=== PATIENT | female | born 1990 | race Caucasian/White ===

== ENCOUNTER 2017-01-29 05:41 | Day surgery (SDC) | payer BC ==
--- NOTE | 2017-01-26 17:02 | PDGENHP ---
History and Physical - Chief Complaint Right Hip Pain - History of Present Illness 1. Bilateral~Hip Dyplasia; RIGHT side symptomatic, labral tear HISTORY OF PRESENT ILLNESS: Kimiis a 26 y.o.~very ~active female~who I have had the pleasure to consult on today.~I have enjoyed meeting her. She~lives in [place]. 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 ~She~is ; she~has no~children. ~Jordana Reevesenjoys training for an olympic triathlon, sprint triathlon, high intensity interval traning,hiking, skiing, rock climbing. Jordana's~right~hip pain~started several months ago, approximately 6 months ago. She reports a sprained ankle in March 2016 but~little~recalled trauma or injury~to the right hip in May 2016, and with no~previous complaints.~ Kimihas~a known history of hip dysplasia when she was given results after an MRI ordered by Dr. Doss in [place]. Presentation today is of~posterior right~hip pain~with lateral hip pain as well. ~The hip does not~wake her~at night and does~click and catch on her. Sitting can be a real struggle~for her. Kimidoes~report suffering from lower back pain episodes. Kimihas~participated in physical therapy twice over two different sessions for 2-3 months each. ~has~tried other conservative measures including chiropractic treatments and accupuncture, dry needling, massage and graston. She ~has not~received sufficient symptomatic improvement. Kimihas~utilized medication for pain management, including CBD oils. She has an intolerance to NSAIDs causing severe nausea Kimihas stiffness but is without pain on the left hip. Kimiunderstands that she~has a hip and pelvis problem which should be researched and wishes to get a better understanding of her~hip status, followed by an establishment of a treatment strategy, hoping she~would be able to get back to her~well being active life. History: Past medical history: ~ ciliac, hypothyroid Relevant familial history: None which is relevant Past surgical history: None Kimihas never received general anesthesia. I have reviewed, verified and agree with the past medical, surgical, family and social history. Current Medications:~has a current medication list which includes the following prescription(s): levothyroxine and multivitamin. ALLERGIES:~is allergic to penicillins. Objective: Physical Examination: Kimiis 5~feet 8~inches tall and weighs~160~Lbs. Kimiis AAO x3; she~is well-nourished, in NAD. Skin is warm and dry. ~Breathing is non-labored. ~CV with RRR by pulse. Abdomen is soft, NTND. Currently, she~walks with a normal~gait. Trendelenburg sign is negative~and proprioception~is reduced, both~sides. She~presents~with no~signs of joint laxity.~Beightons Score: 0 She~is fit looking. ~~ Lower spine examination is negative~for sciatic or femoral nerve irritation with negative~SLR &~femoral stretch tests. Range of motion of the spine is normal~for flexion, extension, and rotations, with no~associated pain. TTP to the~Lumbar paraspinal muscles bilateral. Strength, Sensation and pulses are normal - bilaterally Ankles and knees exams are normal~and no~mal-alignment is evident. She~has~no leg length discrepancy. Thigh circumference is symmetric~with no evidence for muscle atrophy~on both~ sides. Hip ROM (degrees): FL ER At 90~hip FL IR At 90~hip FL AB AD EX IR Neutral hip ER Neutral hip R 105 40 45 40 5 10 50 25 L 110 40 40 35-40 5 10 50 25 Specific hip and pelvis tests: Quadrant ALEX Roll Add. Longus R +++ +++ Negative Negative L + + Negative Negative Glut. Med ITB Pos. Imp R +++ 5/5 strength Negative 5/5 strength Negative L Negative 5/5 strength Negative 5/5 strength Negative Squeeze test measured weak Bony Symphysis pubis is painful~to touch while concentric activity of the rectus abdominis, does~produce pain at its insertion on the right side. Ilio Psos specific tests are positive for pain during cycling for the right hip~ and remarkable for painful snap~on the right HF has negative both hips. Anterior/posterior~capsule tenderness right >> left Greater trochanteric burse is painful~on the right hip~>> left Piriformis tests: FAIR is negative, with no~local signs of neuritis related to sciatic nerve. SIJs examination is produces pain on right side~with~abnormal ALEX~in relation and local tenderness. Hamstrings tests are positive for~tendinopathy the right hip~(muscle belly) On a daily basis, the following percentages reflect Jordana's overall total pain : Deep hip: 75% (posterior capsule) GT: 25% Imaging: Radiology studies which I~have personally reviewed, analyzed and measured are below: XR: AP of the hip and pelvis: Performed in a good~technique Coccyx is at the level of the pubic symphysis 0 degrees [place]~Lines are interrupted R>L Minimal~Pathological signs are seen in the Symphysis Pubis. Minimal~Pathological signs are seen at the Ischial~tuberosity. ~ Specific measurements show: NSA~ LCE Sourcil~Angle Sharp's angle Lat. Cam Lat. Pincer C.Over~sign Head~Coverage % ATDmm R N 13 18 44 - - 12-2 60 N L N 9 25 47 - - 12-12:30 60 N Pos. wall sign ISS NAD ~~Dysplasia Comments R ++ Negative 10.3~mm +++ L ++ Negative 11.6~mm +++ Sclerosis Sup. Lat. OA Cysts Joint Space-WBZ Joint Space-Medial R Negative Negative Negative 7.4~mm 5.9~mm L Negative Negative Negative 7.4~mm 7.2~mm X Table lateral: Anterior cam lesion is seen~on both hips. Alpha Angle: ~ Right 59~dergrees Left 58~degrees MRI shows: decreased cartilage coverage of Right hip, no bone edema, labral tear ~~~~~~~~~~~~~~~~~~~~ Impression and plan:Leandro Boldenis a 26 y.o.~active female~suffering from symptomatic right~hip pain due to Hip Dyplasia~causing significant disability to her~and altering~her~ sport and life activities. Physical examination, imaging, and her~story correspond with the diagnosis mentioned above. I explained that hip dysplasia is a condition wherein the hip joint has excessive play~and instability due to a variety of factors, including the depth and adequacy of the socket, the orientation of the femur bone, and ligament laxity around the hip joint. Dysplasia ranges in severity from borderline to seth, with treatment options being specific to the specific nature of the problem. Left untreated, the instability in the hip joint can cause progressive tearing of the labrum and deterioration of the surface cartilage, ultimately resulting in progressive osteoarthritis of the hip. I explained that femoroacetabular impingement (QUINTIN - Cam type) arises due to a bony or soft tissue conflict between the femur (ball) and acetabulum (socket) caused by an abnormality in the shape of the femoral head and neck. Over time, repetitive impingement can result in damage to the labrum and adjacent surface cartilage within the socket, ultimately giving rise to progressive osteoarthritis of the hip. I explained that although a labral tear can be a source of pain, it is rarely the root of the problem and typically occurs secondary to an underlying abnormality in the shape and mechanics of the hip joint. I reviewed conservative treatment options for Dysplasia and QUINTIN including activity modification to avoid positions of impingement or instability, physical therapy, non-steroidal anti-inflammatory medications, and various injections (corticosteroid and PRP) aimed at reducing inflammation in the hip joint or/and preventing dynamic instability and impingement. PRP injections may promote healing and reduce symptoms in certain cases but it will not repair chronically damaged tissue. Although these measures may help to buy time~and reduce current level of symptoms, they are not a definitive solution to the problem given the underlying abnormality in the shape of the hip joint. Patients who have failed conservative management and continue to experience symptoms are candidates for definitive surgical treatment, which may consist of hip arthroscopy alone or in combination with more invasive bony realignment procedures of the hip socket and/or femur called periacetabular osteotomy (CONCEPCIÓN). Hip arthroscopy typically includes treating the labrum with either repair or reconstruction of the torn labrum; as well as addressing the underlying abnormalities by restoring the normal shape to the hip joint. If the cartilage is damaged a Microfracture surgical procedure may also be necessary to help stimulate the growth of fibrocartilage. If a patient requires a labral reconstruction or a Microfracture, the initial rehabilitation from the surgery may take longer, but the termination clerk results are typically favorable. I reviewed the technical aspects of periacetabular osteotomy (CONCEPCIÓN) including risks, benefits, and expected course of recovery. Jordana~understands that CONCEPCIÓN is an inpatient procedure carried out through two medium sized incisions on the front and back of the hip joint. The hip socket is cut, realigned, and stabilized with 2 ~3 internal screws. Risks include infection, bleeding, injury to nearby nerves or vessels, stiffness, persistent pain, instability, failure of bony healing, implant related complications, and venous thromboembolic disease. Rarely, revision surgery may be required to address these problems. Risks, potential complications, side effects and recovery from surgical procedure were discussed in length. We explained how this surgery is an open procedure, and though patients tend to do well in the long-term, it involves significant pain in the first 2-4 weeks post-op and a rather lengthy rehab.~Overall recovery takes approximately 6 ~12~months depending on the extent of damage and degree of repair. Kimiunderstands that she~will undergo hip arthroscopy 1 week prior to the CONCEPCIÓN to address damage inside the hip joint. Kimiunderstands that hip arthroscopy and CONCEPCIÓN are two separate procedures that are best performed one week apart, with the arthroscopy commencing first to "tighten up" any pathology evident in the hip joint (labral repair, etc.) and the CONCEPCIÓN open procedure occurring 7-10 days later to realign the acetabulum. Kimiwill review the info presented. In order to obtain more detailed information regarding the alignment, orientation, and shape of the bony hip and pelvis I will order a CT scan to be performed. The results of the CT scan, including femoral torsion and acetabular version measured values and 3D images, will aid me in deciding on the best treatment strategy and surgical pre-planning. Kimiwill contact us if she~wishes to pursue further treatment in the future. Kimiis happy with this plan. I have also supplied her~with handouts, outlining the expected surgical treatment and rehab involved. I wish~JordanaLeandroall the best, ~~ Celine Campbell, ATC History Information - Allergies/Home Medication List Allergies/Adverse Reactions: amoxicillin Allergy (Severe, Verified 01/08/17 17:09) Swelling/neck,face,throat Penicillins Allergy (Severe, Verified 01/08/17 17:09) Swelling/neck,face,throat latex Allergy (Mild, Verified 01/08/17 17:09) Redness Milk Containing Products [dairy] Allergy (Verified 01/08/17 11:13) oxycodone Allergy (Verified 01/08/17 11:13) VERTIGO soy Allergy (Verified 01/08/17 11:13) CELIAC Allergy (Uncoded 01/08/17 11:13) Home Medications: Cholecalciferol Vit D3 [Vitamin D3 2000 units tab (OTC)] 2,000 units PO DAILY [Last Taken Unknown] Herbals/Supplements -Info Only 1 ea PO DAILY 01/08/17 [Last Taken Unknown] Levothyroxine [Synthroid 100 mcg (*)] 100 mcg PO DAILY06 01/08/17 [Last Taken Unknown] Multivitamins [Multivitamin (*)] 1 each PO DAILY 01/08/17 [Last Taken Unknown] Thiamine HCl [B-1] 100 mg PO DAILY 01/08/17 [Last Taken Unknown] I have personally reviewed and updated: medical history (Pre-OP) - Social History Smoking Status: Never smoked
[2017-01-29] MEDS ORDERED: ACETAMINOPHEN 500 MG TAB PO ONE (05:58)
[2017-01-29] MEDS ORDERED: PREGABALIN 150 MG CAP PO ONE (05:58)
[2017-01-29] MEDS ORDERED: CLINDAMYCIN 900 MG/DEXTROSE 50 ML IV ONE (05:58)
[2017-01-29] MEDS ORDERED: LIDOCAINE 1% 2 ML INJ ID PRN (05:58)
[2017-01-29] MEDS ORDERED: LR 1,000 ML IV ONE (05:58)
[2017-01-29 06:13] VITALS: PULSE 80
[2017-01-29] MEDS ORDERED: BUPIVACAINE 0.25% 30 ML SDV ONE (06:57)
[2017-01-29] MEDS ORDERED: MIDAZOLAM 2 MG/2 ML VIAL ONE ×2 (07:09→07:16)
[2017-01-29] MEDS ORDERED: fentaNYL 100 MCG/2 ML INJ ONE ×3 (07:15→09:46)
[2017-01-29] MEDS ORDERED: PROPOFOL/EMULSION 500 MG/50 ML BOTTLE IV ONE ×2 (07:16→07:34)
[2017-01-29] MEDS ORDERED: RANITIDINE 50 MG/2 ML VIAL ONE (07:49)
[2017-01-29] MEDS ORDERED: ONDANSETRON 4 MG/2 ML VIAL ONE ×2 (07:49→12:08)
[2017-01-29] MEDS ORDERED: KETOROLAC 30 MG/1 ML SDV ONE (07:49)
[2017-01-29] MEDS ORDERED: ROCURONIUM 50 MG/5 ML VIAL ONE ×2 (07:49→07:55)
[2017-01-29] MEDS ORDERED: METOCLOPRAMIDE 10 MG/2 ML VIAL ONE (07:49)
[2017-01-29] MEDS ORDERED: SUGAMMADEX SODIUM 200 MG/2 ML VIAL IVP ONE (07:49)
[2017-01-29] MEDS ORDERED: LIDOCAINE 2% 5 ML SDV ONE (07:49)
[2017-01-29] MEDS ORDERED: OXYCODONE/APAP 5/325 TAB PO PRN (09:02)
[2017-01-29] MEDS ORDERED: METOCLOPRAMIDE 10 MG/2 ML VIAL IVP PRN (09:02)
[2017-01-29] MEDS ORDERED: ACETAMINOPHEN 500 MG TAB PO PRN (09:02)
[2017-01-29] MEDS ORDERED: DEXAMETHASONE 4 MG/ML VIAL IVP PRN (09:02)
[2017-01-29] MEDS ORDERED: PROMETHAZINE HCL 25 MG/ML INJ IVP PRN (09:02)
[2017-01-29] MEDS ORDERED: LR 500 ML IV PRN (09:02)
[2017-01-29] MEDS ORDERED: HYDROCODONE/APAP 5/325 TAB PO PRN (09:02)
[2017-01-29] MEDS ORDERED: D5W LR 500 ML IV PRN (09:02)
[2017-01-29] MEDS ORDERED: ONDANSETRON 4 MG/2 ML VIAL IVP PRN (09:02)
[2017-01-29] MEDS ORDERED: NALOXONE HCL 0.4 MG/ML INJ IVP PRN ×2 (09:02→10:29)
[2017-01-29] MEDS ORDERED: HYDROCODONE/APAP 5/325 TAB ONE (09:46)
[2017-01-29] MEDS ORDERED: PROMETHAZINE HCL 25 MG/ML INJ ONE ×2 (09:47→12:45)
[2017-01-29] MEDS: fentaNYL 100 MCG/2 ML INJ IVP PRN ×2 (09:49→10:17)
--- NOTE | 2017-01-29 10:02 | POSTANESTH ---
Post Anesthetic Evaluation Cardiovascular Status: Normal, Stable Respiratory Status: Normal, Stable Level of Consciousness/Mental Status: Can Participate in Eval Pain Control: Adequate, Prn Tx Ordered Nausea/Vomiting Control: Adequate, Prn Tx Ordered Complications Possibly Related to Anesthesia: None Noted
[2017-01-29 10:22] VITALS: BP 113/65; O2SAT 100
[2017-01-29] MEDS ORDERED: MEPERIDINE 25 MG/ML SYR IVP PRN (10:29)
[2017-01-29] MEDS ORDERED: MEPERIDINE 25 MG/ML SYR ONE (10:32)
[2017-01-29 11:35] VITALS: RESP 14; TEMP 97.7
== END 2017-01-29 14:48 | disposition home or self-care (01) ==
LOC: FSGY 05:41
PROVIDERS: ATTEND Orthopaedic Surgery Sports Medicine
PROC: 0SQ94ZZ Repair Right Hip Joint, Percutaneous Endoscopic Approach (ICD-10-PCS; principal; 2017-01-29 07:15)
DX: M25.851 Other specified joint disorders, right hip (principal); M25.852 Other specified joint disorders, left hip
CPT/HCPCS: 29914; 76001; C1769; C1713; J0171; J1885; J2250; J2405; J2550; J2704; J2765; J2780; J3010

== ENCOUNTER 2017-02-09 05:46 | Inpatient (IN) | payer BC ==
--- NOTE | 2017-01-29 08:03 | PDANEPAE ---
ANE Past Medical History - Cardiovascular History Hx Hypertension: No Hx Arrhythmias: No Hx Chest Pain: No Hx Coronary Artery / Peripheral Vascular Disease: No Hx CHF / Valvular Disease: No Hx Palpitations: No - Pulmonary History Hx COPD: No Hx Asthma/Reactive Airway Disease: No Hx Recent Upper Respiratory Infection: No Hx Oxygen in Use at Home: No Hx Sleep Apnea: No Sleep Apnea Screening Result - Last Documented: Negative - Neurologic History Hx Cerebrovascular Accident: No Hx Seizures: No Hx Dementia: No - Endocrine History Hx Diabetes: No Hypothyroid: Yes Obesity: yes, no (high anxiety, ETOH use 15-20 beers a week) Endocrine History Comment: hypothyroidism - Renal History Hx Renal Disorders: No - Liver History Hx Hepatic Disorders: No - Neurological & Psychiatric Hx Hx Neurological and Psychiatric Disorders: No - Cancer History Hx Cancer: No - Congenital Disorder History Hx Congenital Disorders: Yes Congenital History Comment: bilateral hip dysplasia - GI History Hx Gastrointestinal Disorders: Yes Gastrointestinal History Comment: celiac disease. hx of colonoscopies - Other Health History Other Health History: tmj uses mouthguard at [facility] - Chronic Pain History Chronic Pain: Yes (bilateral hips) - Surgical History Prior Surgeries: 01/29/17 right hip femoroplasty, labral repair with Romana Gianluca ANE Review of Systems - Exercise capacity METS (RN): 6 METS ANE Patient History - Allergies Allergies/Adverse Reactions: amoxicillin Allergy (Severe, Verified 01/08/17 17:09) Swelling/neck,face,throat Penicillins Allergy (Severe, Verified 01/08/17 17:09) Swelling/neck,face,throat latex Allergy (Mild, Verified 01/08/17 17:09) Redness Milk Containing Products [dairy] Allergy (Verified 01/08/17 11:13) oxycodone Allergy (Verified 01/08/17 11:13) VERTIGO soy Allergy (Verified 01/08/17 11:13) CELIAC Allergy (Uncoded 01/08/17 11:13) - Home Medications Home Medications: Cholecalciferol Vit D3 [Vitamin D3 2000 units tab (OTC)] 2,000 units PO DAILY [Last Taken 01/22/17] Herbals/Supplements -Info Only 1 ea PO DAILY 01/08/17 [Last Taken 01/22/17] Levothyroxine [Synthroid 100 mcg (*)] 100 mcg PO DAILY06 01/08/17 [Last Taken 04:15] Multivitamins [Multivitamin (*)] 1 each PO DAILY 01/08/17 [Last Taken 01/22/17] Thiamine HCl [B-1] 100 mg PO DAILY 01/08/17 [Last Taken 01/22/17] - Smoking Hx Smoking Status: Never smoked - Family Anes Hx Family Hx Anesthesia Complications: none ANE Labs/Vital Signs - Vital Signs Height: 172.72 cm Weight: 74.843 kg ANE Physical Exam - Airway Mallampati Score: Class 1 Mouth exam: normal dental/mouth exam - Pulmonary Pulmonary: no respiratory distress, no rales or rhonchi, clear to auscultation - Cardiovascular Cardiovascular: regular rate and rhythym, no murmur, rub, or gallop, pulses symmetric bilaterally - ASA Status ASA Status: II
--- NOTE | 2017-02-08 08:46 | PDGENHP ---
History and Physical - Chief Complaint RIGHT HIP PAIN - History of Present Illness 1. Bilateral~Hip Dyplasia; RIGHT side symptomatic, labral tear HISTORY OF PRESENT ILLNESS: Kimiis a 26 y.o.~very ~active female~who I have had the pleasure to consult on today.~I have enjoyed meeting her. She~lives in [place]. 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 ~She~is ; she~has no~children. ~Jordana Reevesenjoys training for an olympic triathlon, sprint triathlon, high intensity interval traning,hiking, skiing, rock climbing. Jordana's~right~hip pain~started several months ago, approximately 6 months ago. She reports a sprained ankle in March 2016 but~little~recalled trauma or injury~to the right hip in May 2016, and with no~previous complaints.~ Kimihas~a known history of hip dysplasia when she was given results after an MRI ordered by Dr. Doss in [place]. Presentation today is of~posterior right~hip pain~with lateral hip pain as well. ~The hip does not~wake her~at night and does~click and catch on her. Sitting can be a real struggle~for her. Kimidoes~report suffering from lower back pain episodes. Kimihas~participated in physical therapy twice over two different sessions for 2-3 months each. ~has~tried other conservative measures including chiropractic treatments and accupuncture, dry needling, massage and graston. She ~has not~received sufficient symptomatic improvement. Kimihas~utilized medication for pain management, including CBD oils. She has an intolerance to NSAIDs causing severe nausea Kimihas stiffness but is without pain on the left hip. Kimiunderstands that she~has a hip and pelvis problem which should be researched and wishes to get a better understanding of her~hip status, followed by an establishment of a treatment strategy, hoping she~would be able to get back to her~well being active life. History: Past medical history: ~ ciliac, hypothyroid Relevant familial history: None which is relevant Past surgical history: None Kimihas never received general anesthesia. I have reviewed, verified and agree with the past medical, surgical, family and social history. Current Medications:~has a current medication list which includes the following prescription(s): levothyroxine and multivitamin. ALLERGIES:~is allergic to penicillins. Objective: Physical Examination: Kimiis 5~feet 8~inches tall and weighs~160~Lbs. Kimiis AAO x3; she~is well-nourished, in NAD. Skin is warm and dry. ~Breathing is non-labored. ~CV with RRR by pulse. Abdomen is soft, NTND. Currently, she~walks with a normal~gait. Trendelenburg sign is negative~and proprioception~is reduced, both~sides. She~presents~with no~signs of joint laxity.~Beightons Score: 0 She~is fit looking. ~~ Lower spine examination is negative~for sciatic or femoral nerve irritation with negative~SLR &~femoral stretch tests. Range of motion of the spine is normal~for flexion, extension, and rotations, with no~associated pain. TTP to the~Lumbar paraspinal muscles bilateral. Strength, Sensation and pulses are normal - bilaterally Ankles and knees exams are normal~and no~mal-alignment is evident. She~has~no leg length discrepancy. Thigh circumference is symmetric~with no evidence for muscle atrophy~on both~ sides. Hip ROM (degrees): FL ER At 90~hip FL IR At 90~hip FL AB AD EX IR Neutral hip ER Neutral hip R 105 40 45 40 5 10 50 25 L 110 40 40 35-40 5 10 50 25 Specific hip and pelvis tests: Quadrant ALEX Roll Add. Longus R +++ +++ Negative Negative L + + Negative Negative Glut. Med ITB Pos. Imp R +++ 5/5 strength Negative 5/5 strength Negative L Negative 5/5 strength Negative 5/5 strength Negative Squeeze test measured weak Bony Symphysis pubis is painful~to touch while concentric activity of the rectus abdominis, does~produce pain at its insertion on the right side. Ilio Psos specific tests are positive for pain during cycling for the right hip~ and remarkable for painful snap~on the right HF has negative both hips. Anterior/posterior~capsule tenderness right >> left Greater trochanteric burse is painful~on the right hip~>> left Piriformis tests: FAIR is negative, with no~local signs of neuritis related to sciatic nerve. SIJs examination is produces pain on right side~with~abnormal ALEX~in relation and local tenderness. Hamstrings tests are positive for~tendinopathy the right hip~(muscle belly) On a daily basis, the following percentages reflect Jordana's overall total pain : Deep hip: 75% (posterior capsule) GT: 25% Imaging: Radiology studies which I~have personally reviewed, analyzed and measured are below: XR: AP of the hip and pelvis: Performed in a good~technique Coccyx is at the level of the pubic symphysis 0 degrees [place]~Lines are interrupted R>L Minimal~Pathological signs are seen in the Symphysis Pubis. Minimal~Pathological signs are seen at the Ischial~tuberosity. ~ Specific measurements show: NSA~ LCE Sourcil~Angle Sharp's angle Lat. Cam Lat. Pincer C.Over~sign Head~Coverage % ATDmm R N 13 18 44 - - 12-2 60 N L N 9 25 47 - - 12-12:30 60 N Pos. wall sign ISS NAD ~~Dysplasia Comments R ++ Negative 10.3~mm +++ L ++ Negative 11.6~mm +++ Sclerosis Sup. Lat. OA Cysts Joint Space-WBZ Joint Space-Medial R Negative Negative Negative 7.4~mm 5.9~mm L Negative Negative Negative 7.4~mm 7.2~mm X Table lateral: Anterior cam lesion is seen~on both hips. Alpha Angle: ~ Right 59~dergrees Left 58~degrees MRI shows: decreased cartilage coverage of Right hip, no bone edema, labral tear ~~~~~~~~~~~~~~~~~~~~ Impression and plan:Leandro Boldenis a 26 y.o.~active female~suffering from symptomatic right~hip pain due to Hip Dyplasia~causing significant disability to her~and altering~her~ sport and life activities. Physical examination, imaging, and her~story correspond with the diagnosis mentioned above. I explained that hip dysplasia is a condition wherein the hip joint has excessive play~and instability due to a variety of factors, including the depth and adequacy of the socket, the orientation of the femur bone, and ligament laxity around the hip joint. Dysplasia ranges in severity from borderline to seth, with treatment options being specific to the specific nature of the problem. Left untreated, the instability in the hip joint can cause progressive tearing of the labrum and deterioration of the surface cartilage, ultimately resulting in progressive osteoarthritis of the hip. I explained that femoroacetabular impingement (QUINTIN - Cam type) arises due to a bony or soft tissue conflict between the femur (ball) and acetabulum (socket) caused by an abnormality in the shape of the femoral head and neck. Over time, repetitive impingement can result in damage to the labrum and adjacent surface cartilage within the socket, ultimately giving rise to progressive osteoarthritis of the hip. I explained that although a labral tear can be a source of pain, it is rarely the root of the problem and typically occurs secondary to an underlying abnormality in the shape and mechanics of the hip joint. I reviewed conservative treatment options for Dysplasia and QUINTIN including activity modification to avoid positions of impingement or instability, physical therapy, non-steroidal anti-inflammatory medications, and various injections (corticosteroid and PRP) aimed at reducing inflammation in the hip joint or/and preventing dynamic instability and impingement. PRP injections may promote healing and reduce symptoms in certain cases but it will not repair chronically damaged tissue. Although these measures may help to buy time~and reduce current level of symptoms, they are not a definitive solution to the problem given the underlying abnormality in the shape of the hip joint. Patients who have failed conservative management and continue to experience symptoms are candidates for definitive surgical treatment, which may consist of hip arthroscopy alone or in combination with more invasive bony realignment procedures of the hip socket and/or femur called periacetabular osteotomy (CONCEPCIÓN). Hip arthroscopy typically includes treating the labrum with either repair or reconstruction of the torn labrum; as well as addressing the underlying abnormalities by restoring the normal shape to the hip joint. If the cartilage is damaged a Microfracture surgical procedure may also be necessary to help stimulate the growth of fibrocartilage. If a patient requires a labral reconstruction or a Microfracture, the initial rehabilitation from the surgery may take longer, but the terminal system operator results are typically favorable. I reviewed the technical aspects of periacetabular osteotomy (CONCEPCIÓN) including risks, benefits, and expected course of recovery. Jordana~understands that CONCEPCIÓN is an inpatient procedure carried out through two medium sized incisions on the front and back of the hip joint. The hip socket is cut, realigned, and stabilized with 2 ~3 internal screws. Risks include infection, bleeding, injury to nearby nerves or vessels, stiffness, persistent pain, instability, failure of bony healing, implant related complications, and venous thromboembolic disease. Rarely, revision surgery may be required to address these problems. Risks, potential complications, side effects and recovery from surgical procedure were discussed in length. We explained how this surgery is an open procedure, and though patients tend to do well in the long-term, it involves significant pain in the first 2-4 weeks post-op and a rather lengthy rehab.~Overall recovery takes approximately 6 ~12~months depending on the extent of damage and degree of repair. Kimiunderstands that she~will undergo hip arthroscopy 1 week prior to the CONCEPCIÓN to address damage inside the hip joint. Kimiunderstands that hip arthroscopy and CONCEPCIÓN are two separate procedures that are best performed one week apart, with the arthroscopy commencing first to "tighten up" any pathology evident in the hip joint (labral repair, etc.) and the CONCEPCIÓN open procedure occurring 7-10 days later to realign the acetabulum. Kimiwill review the info presented. In order to obtain more detailed information regarding the alignment, orientation, and shape of the bony hip and pelvis I will order a CT scan to be performed. The results of the CT scan, including femoral torsion and acetabular version measured values and 3D images, will aid me in deciding on the best treatment strategy and surgical pre-planning. Kimiwill contact us if she~wishes to pursue further treatment in the future. Kimiis happy with this plan. I have also supplied her~with handouts, outlining the expected surgical treatment and rehab involved. I wish~JordanaLeandroall the best, ~~ Celine Campbell, ATC History Information - Allergies/Home Medication List Allergies/Adverse Reactions: amoxicillin Allergy (Severe, Verified 01/08/17 17:09) Swelling/neck,face,throat Penicillins Allergy (Severe, Verified 01/08/17 17:09) Swelling/neck,face,throat latex Allergy (Mild, Verified 01/08/17 17:09) Redness Milk Containing Products [dairy] Allergy (Verified 01/08/17 11:13) oxycodone Allergy (Verified 01/08/17 11:13) VERTIGO soy Allergy (Verified 01/08/17 11:13) CELIAC Allergy (Uncoded 01/08/17 11:13) Home Medications: Cholecalciferol Vit D3 [Vitamin D3 2000 units tab (OTC)] 2,000 units PO DAILY [Last Taken 01/22/17] Herbals/Supplements -Info Only 1 ea PO DAILY 01/08/17 [Last Taken 01/22/17] Levothyroxine [Synthroid 100 mcg (*)] 100 mcg PO DAILY06 01/08/17 [Last Taken 04:15] Multivitamins [Multivitamin (*)] 1 each PO DAILY 01/08/17 [Last Taken 01/22/17] Thiamine HCl [B-1] 100 mg PO DAILY 01/08/17 [Last Taken 01/22/17] I have personally reviewed and updated: medical history - Social History Smoking Status: Never smoked Review of Systems Review of Systems: Physical Exam Physical Exam:
[2017-02-09] MEDS ORDERED: TRANEXAMIC ACID 1,000 MG in NS 100 ML IV ONE ×2 (06:00)
[2017-02-09] MEDS ORDERED: CLINDAMYCIN 900 MG/DEXTROSE 50 ML IV ONE (06:00)
[2017-02-09] MEDS ORDERED: ACETAMINOPHEN 500 MG TAB PO ONE (06:42)
[2017-02-09] MEDS ORDERED: PREGABALIN 150 MG CAP PO ONE ×2 (06:42→07:45)
[2017-02-09] MEDS ORDERED: SCOPOLAMINE HYDROBROMIDE 1 MG/3 DAYS PATCH TD ONE (06:42)
[2017-02-09] MEDS ORDERED: LR 1,000 ML IV ONE (07:03)
[2017-02-09] MEDS ORDERED: CITRATE DEXTROSE SOLN 500 ML BAG ONE ×2 (07:07→10:59)
[2017-02-09] MEDS ORDERED: ROCURONIUM 50 MG/5 ML VIAL ONE (07:14)
[2017-02-09] MEDS ORDERED: HYDROmorphONE/DILAUDID 2 MG/ML INJ ONE (07:14)
[2017-02-09] MEDS ORDERED: PROPOFOL 200 MG/20 ML VIAL ONE ×2 (07:15→10:18)
[2017-02-09] MEDS ORDERED: fentaNYL 100 MCG/2 ML INJ ONE ×3 (07:15→13:04)
[2017-02-09] MEDS ORDERED: MIDAZOLAM 2 MG/2 ML VIAL IVP ONE (07:29)
--- NOTE | 2017-02-09 07:31 | PDANEPAE ---
ANE History of Present Illness R hip arthritis ANE Past Medical History Past Medical History: hypothyroid - Cardiovascular History Hx Hypertension: No Hx Arrhythmias: No Hx Chest Pain: No Hx Coronary Artery / Peripheral Vascular Disease: No Hx CHF / Valvular Disease: No Hx Palpitations: No - Pulmonary History Hx COPD: No Hx Asthma/Reactive Airway Disease: No Hx Recent Upper Respiratory Infection: No Hx Oxygen in Use at Home: No Hx Sleep Apnea: No Sleep Apnea Screening Result - Last Documented: Negative - Neurologic History Hx Cerebrovascular Accident: No Hx Seizures: No Hx Dementia: No - Endocrine History Hx Diabetes: No Hypothyroid: Yes Obesity: yes, no (high anxiety, ETOH use 15-20 beers a week) Endocrine History Comment: hypothyroidism - Renal History Hx Renal Disorders: No - Liver History Hx Hepatic Disorders: No - Neurological & Psychiatric Hx Hx Neurological and Psychiatric Disorders: No - Cancer History Hx Cancer: No - Congenital Disorder History Hx Congenital Disorders: Yes Congenital History Comment: bilateral hip dysplasia - GI History Hx Gastrointestinal Disorders: Yes Gastrointestinal History Comment: celiac disease. hx of colonoscopies - Other Health History Other Health History: tmj uses mouthguard at noc - Chronic Pain History Chronic Pain: Yes (bilateral hips) - Surgical History Prior Surgeries: 01/29/17 right hip femoroplasty, labral repair with Romana HURT Review of Systems Review of Systems: - Exercise capacity METS (RN): 6 METS ANE Patient History - Allergies Allergies/Adverse Reactions: amoxicillin Allergy (Severe, Verified 01/08/17 17:09) Swelling/neck,face,throat Penicillins Allergy (Severe, Verified 01/08/17 17:09) Swelling/neck,face,throat latex Allergy (Mild, Verified 01/08/17 17:09) Redness Milk Containing Products [dairy] Allergy (Verified 01/08/17 11:13) oxycodone Allergy (Verified 01/08/17 11:13) VERTIGO soy Allergy (Verified 01/08/17 11:13) CELIAC Allergy (Uncoded 01/08/17 11:13) - Home Medications Home Medications: Cholecalciferol Vit D3 [Vitamin D3 2000 units tab (OTC)] 2,000 units PO DAILY [Last Taken 01/22/17] Herbals/Supplements -Info Only 1 ea PO DAILY 01/08/17 [Last Taken 01/22/17] Levothyroxine [Synthroid 100 mcg (*)] 100 mcg PO DAILY06 01/08/17 [Last Taken 04:15] Multivitamins [Multivitamin (*)] 1 each PO DAILY 01/08/17 [Last Taken 01/22/17] Thiamine HCl [B-1] 100 mg PO DAILY 01/08/17 [Last Taken 01/22/17] - Smoking Hx Smoking Status: Never smoked - Family Anes Hx Family Hx Anesthesia Complications: none ANE Labs/Vital Signs - Vital Signs Height: 172.72 cm Weight: 74.843 kg ANE Physical Exam - Airway Mallampati Score: Class 1 Mouth exam: normal dental/mouth exam - Pulmonary Pulmonary: no respiratory distress - Cardiovascular Cardiovascular: regular rate and rhythym - ASA Status ASA Status: II ANE Anesthesia Plan Anesthesia Plan: general endotracheal anesthesia, epidural
[2017-02-09] MEDS ORDERED: PHENYLEPHRINE HCL 100 MCG/ML SYR ONE (09:02)
[2017-02-09] MEDS ORDERED: epHEDrine SULFATE 10 MG/ML SYR ONE (09:02)
[2017-02-09] MEDS ORDERED: LIDOCAINE 2% 5 ML SDV ONE (09:02)
[2017-02-09] MEDS ORDERED: CLINDAMYCIN 600 MG/DEXTROSE 50 ML IV ONE (09:45)
[2017-02-09] MEDS ORDERED: HYDROmorphONE/DILAUDID 1 MG/ML INJ IVP PRN (11:59)
[2017-02-09] MEDS ORDERED: fentaNYL 100 MCG/2 ML INJ IVP PRN (11:59)
[2017-02-09] MEDS ORDERED: NALOXONE HCL 0.4 MG/ML INJ IVP PRN ×2 (11:59→12:54)
[2017-02-09] MEDS ORDERED: ONDANSETRON 4 MG/2 ML VIAL IVP PRN ×2 (11:59→12:31)
[2017-02-09] MEDS ORDERED: PROMETHAZINE HCL 25 MG/ML INJ IVP PRN (11:59)
[2017-02-09] MEDS ORDERED: MEPERIDINE 25 MG/ML SYR IVP PRN (11:59)
[2017-02-09] MEDS ORDERED: POLYETHYLENE GLYCOL 3350 17 GM PKT PO PRN (12:31)
[2017-02-09] MEDS ORDERED: BISACODYL 10 MG SUPP PR PRN (12:31)
[2017-02-09] MEDS ORDERED: LACTULOSE 20 GM/30 ML UDCUP PO PRN (12:31)
[2017-02-09] MEDS ORDERED: ONDANSETRON DISINTEGRATING 4 MG TAB PO PRN (12:31)
[2017-02-09] MEDS ORDERED: ACETAMINOPHEN 325 MG TAB PO PRN (12:31)
[2017-02-09] MEDS ORDERED: MAGNESIUM HYDROXIDE 30 ML UDCUP PO PRN (12:31)
[2017-02-09] MEDS ORDERED: NARCOTIC DRIP BAG-TOTAL ALL TYPES EP PRN (12:54)
[2017-02-09] MEDS ORDERED: ONDANSETRON 4 MG/2 ML VIAL ONE (13:48)
--- NOTE | 2017-02-09 16:33 | SUROPNOTE ---
JARVIS Operative Report - Surgery Surgery was performed in [facility] 02/09/17 Diagnosis: Right 1. Hip Acetabular Dysplasia Operation: Right~Akanksha Acetabular Osteotomy (CONCEPCIÓN) Surgeon: Yoni Hurd MD [employer] Sigma Black Trainer:~~Santos ROSENTHAL Anesthetic: General + epidural Procedure: General anesthetic. Antibiotics given. Cell saver in use. Fluoroscopy. Phase 1: Position lateral, diagonal skin incision between ischial tuberosity and greater trochanter as for posterior hip approach. Blunt split of glut max fibers. Identification of fat pad overlying sciatic nerve. Exposure of sciatic nerve under fat pad, gently retracting it away-medially to ischial tuberosity. Exposure of subcotoloid fossa proximal to short rotators. Using osteotomes and under fluoroscopy, osteotomy of subcotoloid fossa to sciatic notch proximal to ischial spine. Closure of lateral cut. Patient is turned supine. Phase 2: Skin incision just distal to ASIS. Using diathermy the iliac spine was exposed and inguinal ligament + Sartorious were retracted medially, taking the LFCN with them, protecting it. Inner ilium was dissected from iliacus muscle bluntly , with a cob and swab. Dissection continued towards lateral superior ramus pubis. Using fluoroscopy an osteotomy of lateral superior ramus, just medial to tear drop, was performed with curved fish mouth osteotome. Phase 3: Osteotomy lines of the ilium were marked with diathermy as pre planned according to XR/CT and expected correction of acatabulum. 2 Shanz screws were drilled into central acetabular fragment, corresponding with planned correction angles, in order to mobilize central acetabular fragment after osteotomy is complete. ~Iliac osteotomy was performed with reciprocating saw and the main acetabular fragment was moved to realign weight bearing position. After confirmation of correction using fluoroscopy in AP and false profile planes, the fragment was fixed with 2 - 5.5mm ~full threaded~screws~and 1 - 4mm~~full threaded~screw. Inguinal ligament and Sartorious were attached back to ASIS through drill holes. Incision was closed according to soft tissue layers. Skin was closed with subdermal Monocryl. Final fluoro shots were obtained to confirm position/correction. After surgery Jordana~moved both lower limbs and had no NV motor compromise. Evaluation under anesthesia: IR at 90 degrees hip flexion prior to CONCEPCIÓN was 45~degrees and after CONCEPCIÓN was 20~ degrees. Bleedin~cc into cell-saver, 675~of blood products were returned to patient. Post op instructions: 1. Non~weight bearing crutches for 2~weeks, PWB for 4 weeks 50% 2. Epidural analgesia for 24-48 hours 3. Continuous SCD 4. Aspirin 81 mg X1 day once Epidural is discontinued 5. Avoid hip flexion past 90 and hip External rotation. 6. PT according to my recommendations at follow up visit Kind regards, Dr. Yoni Hurd .
[2017-02-09] MEDS: fentaNYL 2MCG/ML/BUP 0.1% RTU 100 ML EP SCH (20:48)
[2017-02-09] MEDS: SENNOSIDES/DOCUSATE SODIUM TAB PO SCH (20:49)
[2017-02-10] MEDS: NS 250 ML IV PRN ×2 (05:15→11:45)
[2017-02-10] MEDS: fentaNYL 2MCG/ML/BUP 0.1% RTU 100 ML EP SCH ×2 (05:24→18:09)
[2017-02-10 05:29] LABS: HEMATOCRIT 33.1 % (38.0-47.0); HEMOGLOBIN 11.2 g/dL (12.6-16.3); MEAN CELL HEMOGLOBIN 30.8 pg (27.9-34.1); MEAN CELL HEMOGLOBIN CONCENTR. 33.8 g/dL (32.4-36.7); MEAN CELL VOLUME 90.9 fL (81.5-99.8); RED BLOOD CELL COUNT 3.64 10^6/uL (4.18-5.33); RED CELL DISTRIBUTION WIDTH 11.9 % (11.5-15.2)
[2017-02-10 05:44] LABS: POTASSIUM 4.4 mEq/L (3.5-5.2)
[2017-02-10 05:45] LABS: ANION GAP 9 mEq/L (8-16); CALCIUM 8.1 mg/dL (8.5-10.4); CARBON DIOXIDE 26 mEq/l (22-31); CHLORIDE 101 mEq/L (97-110); CREATININE 0.7 mg/dL (0.6-1.0); GLOMERULAR FILTRATION RATE > 60; GLUCOSE 99 mg/dL (70-100); SODIUM 136 mEq/L (134-144)
[2017-02-10] MEDS ORDERED: CLINDAMYCIN 600 MG/DEXTROSE 50 ML IV ONE (08:30)
[2017-02-10] MEDS: SENNOSIDES/DOCUSATE SODIUM TAB PO SCH ×2 (09:31→21:33)
[2017-02-10] MEDS: DC NARCS MISC SCH (09:43)
[2017-02-10] MEDS: REGARDING ANTICOAG MISC SCH (09:43)
--- NOTE | 2017-02-10 10:17 | SOAPPROG ---
SOAP Progress Note Assessment/Plan: Assessment: POD 1 S/P CONCEPCIÓN, pain management is acceptable Plan: I will turn down the epidural infusion to 7cc/hr. Patient is unable to move her legs currently and would like to be able to sit at the edge of bed or move to chair. In addition, I will order PO Hydrocodone PRN which I instructed the patient to ask for as needed. I think it reasonable to add Toradol 15mg Q6PRN as well but I will leave that up to the surgical team. Anesthesia will continue to follow. Please call with questions or concerns. 02/10/17 10:14 Subjective: Ms. Duarte is POD 1 s/p Rt CONCEPCIÓN for hip dysplasia. She is doing well this morning. Pain is rated as a 3/10. No symptoms of LA anesthesia toxicity ( tinnitus, light-headedness etc.). Her pain is being managed currently with a lumbar epidural running at 10cc/hr. No current complaints. Objective: Vital Signs Temp Pulse Resp BP Pulse Ox 36.6 C 76 16 97/56 L 99 02/10/17 08:00 02/10/17 08:00 02/10/17 08:00 02/10/17 08:00 02/10/17 08:00 Laboratory Results 02/10/17 05:05 02/10/17 05:05 02/09/17 02/10/17 02/11/17 05:59 05:59 05:59 Intake Total 750 Output Total 3200 Balance -2450 GEN: NAD CV: Pulse is regular MSK: Unable to move legs bilaterally to gravity NEURO: A&O ICD10 Worksheet Patient Problems: Problems Problem Status Onset Seen by pain management service Acute - ICD10 Problem Qualifiers (1) Seen by pain management service
[2017-02-10] MEDS: HYDROCODONE/APAP 5/325 TAB PO PRN ×4 (11:41→21:34)
[2017-02-10] MEDS: DIAZEPAM 2 MG TAB PO PRN (18:41)
[2017-02-11] MEDS: DIAZEPAM 2 MG TAB PO PRN ×3 (00:35→22:04)
[2017-02-11] MEDS: HYDROCODONE/APAP 5/325 TAB PO PRN ×2 (02:06→05:12)
[2017-02-11] MEDS: HYDROmorphONE/DILAUDID 1 MG/ML INJ IVP PRN ×10 (02:51→23:32)
[2017-02-11] MEDS: PROMETHAZINE HCL 25 MG/ML INJ IVP PRN (03:47)
[2017-02-11] MEDS ORDERED: LEVOTHYROXINE 100 MCG TAB PO SCH (08:15)
--- NOTE | 2017-02-11 08:18 | SOAPPROG ---
SOAP Progress Note Assessment/Plan: Assessment: 1 day post op Right Periacetabular Osteotomy Plan: Epidural to be weaned down by anesthesia Flournoy Up with PT/OT Pelvis Xray on Sunday02/11/17 08:11 Subjective: I saw Jordana yesterday at 1500. At that time she was experiencing numbness and loss of motor function in her RLE. She had been fairly well pain controlled until that afternoon when I saw her, she was rating her pain as "4-5/ 10". Anesthesia ordered Flournoy to suppliment PCEA. She denied having nausea but was concerned it, as this has been the norm while taking opioids. She denied cp or sob. Objective: Vital Signs Temp Pulse Resp BP Pulse Ox 37.0 C 87 14 105/65 98 02/11/17 07:30 02/11/17 07:30 02/11/17 07:30 02/11/17 07:30 02/11/17 07:30 Laboratory Results 02/10/17 05:05 02/10/17 05:05 02/10/17 02/11/17 02/12/17 05:59 05:59 05:59 Intake Total 750 Output Total 3200 1150 1900 Balance -2450 -1150 -1900 Well appearing in NAD RIGHT HIP: dressings clean, dry intact some ecchymosis and edema NVI distally No motor function of RLE (presumed epidural) - Pending Discharge Pending Discharge Within 48 Hours: Yes Pending Discharge Date: 02/13/17 Pending Discharge Time: 11:00 ICD10 Worksheet Patient Problems: Problems Problem Status Onset Seen by pain management service Acute
[2017-02-11] MEDS ORDERED: HYDROmorphONE/DILAUDID 1 MG/ML INJ IVP PRN (08:28)
--- NOTE | 2017-02-11 08:40 | SOAPPROG ---
TRISTAN Progress Note Assessment/Plan: Assessment: 2nd day post op Right Periacetabular Osteotomy Plan: Epidural out now Leave Haynes in until pt is ready to be more mobile. [place] increased to 10/325 #2 Q4hrs scheduled Dilaudid 0.2-0.4 IVP Q2hrs Lyrica 75mg BID 02/11/17 08:11 02/11/17 08:38 Subjective: Jordana's epidural came out last night. Anesthesia ordered Dilaudid IVP and [place]. I spoke with her over the phone this morning and decided to increase [place] to 10/325 to be given scheduled Q4hrs, Dilaudid 0.2-.04IVP Q2hr and Lyrica 75mg BID. She has motor function now of RLE. She is fine with this plan. Objective: Vital Signs Temp Pulse Resp BP Pulse Ox 37.0 C 87 14 105/65 98 02/11/17 07:30 02/11/17 07:30 02/11/17 07:30 02/11/17 07:30 02/11/17 07:30 Laboratory Results 02/10/17 05:05 02/10/17 05:05 02/10/17 02/11/17 02/12/17 05:59 05:59 05:59 Intake Total 750 Output Total 3200 1150 1900 Balance -2450 -1150 -1900 ICD10 Worksheet Patient Problems: Problems Problem Status Onset Seen by pain management service Acute
--- NOTE | 2017-02-11 09:26 | POSTANESTH ---
Post Anesthetic Evaluation Cardiovascular Status: Normal, Stable Respiratory Status: Normal, Stable Level of Consciousness/Mental Status: Can Participate in Eval Pain Control: Adequate, Prn Tx Ordered Nausea/Vomiting Control: Adequate, Prn Tx Ordered (Epidural accidentally d/c'd last night. Pt appears comfortable though anxious. Would recommend adding adjuvants (lyrica, toradol) as able.) Complications Possibly Related to Anesthesia: None Noted
[2017-02-11] MEDS: CHOLECALCIFEROL VIT D3 2,000 UNITS TAB/CAP PO SCH (09:28)
[2017-02-11] MEDS: HYDROCODONE/APAP 10/325 TAB PO SCH ×4 (09:29→22:05)
[2017-02-11] MEDS: PREGABALIN 75 MG CAP PO SCH ×2 (09:29→20:47)
[2017-02-11] MEDS: THIAMINE HCL 100 MG TAB PO SCH (09:31)
[2017-02-11] MEDS: MULTIVITAMINS 1 EACH TAB PO SCH (09:31)
[2017-02-11] MEDS: LEVOTHYROXINE 100 MCG TAB PO SCH (09:43)
[2017-02-11] MEDS: REGARDING ANTICOAG MISC SCH (10:19)
[2017-02-11] MEDS: DC NARCS MISC SCH (10:19)
[2017-02-11] MEDS: SENNOSIDES/DOCUSATE SODIUM TAB PO SCH ×2 (10:20→20:47)
[2017-02-11] MEDS ORDERED: HYDROCODONE/APAP 10/325 TAB PO SCH (12:00)
[2017-02-11] MEDS: ASPIRIN EC 81 MG TAB PO SCH (12:50)
--- NOTE | 2017-02-11 17:08 | ASMTCMCOM ---
CM Note CM Note Notes: Reviewed chart, spoke w/ KAROLYN Hernandez. Pt s/p CONCEPCIÓN for hip dysplasia. Pt lives w/ her . Anticipate pt will likely d/c home independently when medically stable. CM will cont to follow for potential needs. Date Signed: 02/10/2017 06:06 PM Electronically Signed By:Michelle Melendez
--- NOTE | 2017-02-11 17:25 | SOAPPROG ---
SOAP Progress Note Assessment/Plan: Assessment: Plan: 02/11/17 17:20 POD 2, doing well, pain without epidural (pulled out last night accidently) is 4 -5/10 at rest. Majority of pain is in the buttock per ischial cut. NV intact in lower limbs aside from complete numbness LFCN. Did not not do PT due to significant numbness and reduced function both feet with epidural, will push tomorrow. If XR is good after PT will be cleared for 50% WB. Folly can come out. Dr Hurd Objective: Vital Signs Temp Pulse Resp BP Pulse Ox 37.1 C 93 18 111/79 95 02/11/17 15:14 02/11/17 15:14 02/11/17 15:14 02/11/17 15:14 02/11/17 15:14 Laboratory Results 02/10/17 05:05 02/10/17 05:05 02/10/17 02/11/17 02/12/17 05:59 05:59 05:59 Intake Total 750 Output Total 3200 1150 4000 Balance -2450 -1150 -4000 ICD10 Worksheet Patient Problems: Problems Problem Status Onset Seen by pain management service Acute
--- NOTE | 2017-02-11 19:59 | SOAPPROG ---
SOAP Progress Note Assessment/Plan: Assessment: POD 2 S/P CONCEPCIÓN, pain management is acceptable with orals Plan: Epidural has been d/c's. Patient still is unable to acceptably move her right leg. The epidural was "dense" on this side and perhaps there is some residual affect. Otherwise unremarkable recovery. Agree with Hydrocodone, lyrica and toradol PRN. Please call with questions or concerns. 02/10/17 10:14 02/11/17 19:59 Subjective: Patient seen and examined on the floor. POD 2 s/p CONCEPCIÓN for hip dyplasia on the right. Doing ok from a pain perspective. The epidural catheter reportedly came out of the connector early this AM. COnsequently the patient had "a couple hours " of rebound pain. This was overcome with PO hydromorphone and IV dilauded pushes. The epidural was pulled this morning around 9 am. Pain scores have been 4-5's most of the day. The patient still can't move her right to gravity. Has not yet been up with assist. Objective: Vital Signs Temp Pulse Resp BP Pulse Ox 37.1 C 107 H 18 106/62 97 02/11/17 19:20 02/11/17 19:20 02/11/17 19:20 02/11/17 19:20 02/11/17 19:20 Laboratory Results 02/10/17 05:05 02/10/17 05:05 02/10/17 02/11/17 02/12/17 05:59 05:59 05:59 Intake Total 750 2000 Output Total 3200 1150 4000 Balance -2450 -1150 -2000 GEN: NAD MSK: Extremities warm Neuro: Right leg 3/5 strength at the quad, left 4/5 at the quad ICD10 Worksheet Patient Problems: Problems Problem Status Onset Seen by pain management service Acute - ICD10 Problem Qualifiers (1) Seen by pain management service
[2017-02-11] MEDS ORDERED: diphenhydrAMINE 25 MG CAP PO PRN (21:27)
[2017-02-12] MEDS: HYDROCODONE/APAP 10/325 TAB PO SCH ×6 (02:13→22:07)
[2017-02-12] MEDS: HYDROmorphONE/DILAUDID 1 MG/ML INJ IVP PRN ×5 (02:47→22:33)
[2017-02-12] MEDS: LEVOTHYROXINE 100 MCG TAB PO SCH (06:06)
[2017-02-12] MEDS: ASPIRIN EC 81 MG TAB PO SCH (09:11)
[2017-02-12] MEDS: CHOLECALCIFEROL VIT D3 2,000 UNITS TAB/CAP PO SCH (09:11)
[2017-02-12] MEDS: PREGABALIN 75 MG CAP PO SCH ×2 (09:11→20:15)
[2017-02-12] MEDS: THIAMINE HCL 100 MG TAB PO SCH (09:11)
[2017-02-12] MEDS: MULTIVITAMINS 1 EACH TAB PO SCH (09:11)
[2017-02-12] MEDS: PROMETHAZINE HCL 25 MG/ML INJ IVP PRN (09:22)
[2017-02-12] MEDS: REGARDING ANTICOAG MISC SCH (10:16)
[2017-02-12] MEDS: DC NARCS MISC SCH (10:16)
[2017-02-12] MEDS: SENNOSIDES/DOCUSATE SODIUM TAB PO SCH ×2 (10:17→20:16)
--- NOTE | 2017-02-12 18:34 | SOAPPROG ---
SOAP Progress Note Assessment/Plan: Assessment: 3rd day post op Right Periacetabular Osteotomy Plan: IV may stay longer than 72hrs greater than 3grams of Tylenol may be administered/24hrs Adding Oxycodone 5-20mg Q4hrs scheduled 02/11/17 08:11 02/11/17 08:38 02/12/17 18:31 Subjective: Spoke with Jordana over the phone. We decided on adding Oxycodone to try and wean her from the Glenn and Dilaudid. No Scopolamine patch at this time. IV may stay in place for another 24hrs. Objective: Vital Signs Temp Pulse Resp BP Pulse Ox 37.3 C 103 H 16 116/78 97 02/12/17 15:31 02/12/17 15:31 02/12/17 15:31 02/12/17 15:31 02/12/17 15:31 Laboratory Results 02/10/17 05:05 02/10/17 05:05 02/11/17 02/12/17 02/13/17 05:59 05:59 05:59 Intake Total 2800 Output Total 1150 5200 600 Balance -1150 -2400 -600 ICD10 Worksheet Patient Problems: Problems Problem Status Onset Seen by pain management service Acute
[2017-02-12] MEDS: oxyCODONE IR 5 MG TAB PO SCH ×2 (20:24→21:32)
--- NOTE | 2017-02-12 20:54 | SOAPPROG ---
TRISTAN Progress Note Assessment/Plan: Assessment: Plan: 02/11/17 17:20 POD 2, doing well, pain without epidural (pulled out last night accidently) is 4 -5/10 at rest. Majority of pain is in the buttock per ischial cut. NV intact in lower limbs aside from complete numbness LFCN. Did not not do PT due to significant numbness and reduced function both feet with epidural, will push tomorrow. If XR is good after PT will be cleared for 50% WB. Folly can come out. Dr Hurd 02/12/17 20:46 POD 3, Epidural and folly out. LFCN 3/10, improved. Moving quad and ankle/toes well but significant weakness of IP, probably pain inhibition or temporary neurapraxia (femoral nerve works well). I expect this to improved in the next 4-8 weeks. Pain is reported as 4-5/10 (patients says she lived with 7/10 before surgery) but still requires high dose of pain meds. I saw XR today and happy with it, I clear her for 50% WB when she stands and she can start putting some weight (starting 20-30% and increasing to 50%) when she walks. At two weeks post op she will be cleared for FWB. Planning on discharge Sunday DR Hurd Objective: Vital Signs Temp Pulse Resp BP Pulse Ox 36.8 C 92 14 110/73 96 02/12/17 19:38 02/12/17 19:38 02/12/17 19:38 02/12/17 19:38 02/12/17 19:38 Laboratory Results 02/10/17 05:05 02/10/17 05:05 02/11/17 02/12/17 02/13/17 05:59 05:59 05:59 Intake Total 2800 950 Output Total 1150 5200 600 Balance -1150 -2400 350 ICD10 Worksheet Patient Problems: Problems Problem Status Onset Seen by pain management service Acute
[2017-02-12] MEDS: DIAZEPAM 2 MG TAB PO PRN (22:33)
[2017-02-13] MEDS: oxyCODONE IR 5 MG TAB PO SCH ×5 (02:43→18:43)
[2017-02-13] MEDS: HYDROmorphONE/DILAUDID 1 MG/ML INJ IVP PRN (02:43)
[2017-02-13] MEDS: HYDROCODONE/APAP 10/325 TAB PO SCH ×7 (03:03→23:14)
[2017-02-13] MEDS: LEVOTHYROXINE 100 MCG TAB PO SCH (06:07)
[2017-02-13] MEDS: PROMETHAZINE HCL 25 MG/ML INJ IVP PRN (09:13)
[2017-02-13] MEDS: SENNOSIDES/DOCUSATE SODIUM TAB PO SCH ×2 (11:21→21:00)
[2017-02-13] MEDS: THIAMINE HCL 100 MG TAB PO SCH (11:22)
[2017-02-13] MEDS: ASPIRIN EC 81 MG TAB PO SCH (11:22)
[2017-02-13] MEDS: MULTIVITAMINS 1 EACH TAB PO SCH (11:22)
[2017-02-13] MEDS: PREGABALIN 75 MG CAP PO SCH ×2 (11:22→20:59)
[2017-02-13] MEDS: CHOLECALCIFEROL VIT D3 2,000 UNITS TAB/CAP PO SCH (11:22)
[2017-02-13] MEDS: DIAZEPAM 2 MG TAB PO PRN (23:10)
[2017-02-14] MEDS: oxyCODONE IR 5 MG TAB PO SCH ×5 (01:11→13:32)
[2017-02-14] MEDS: HYDROCODONE/APAP 10/325 TAB PO SCH ×4 (03:44→17:34)
[2017-02-14] MEDS: LEVOTHYROXINE 100 MCG TAB PO SCH (06:06)
[2017-02-14 08:39] VITALS: RESP 16
[2017-02-14] MEDS: CHOLECALCIFEROL VIT D3 2,000 UNITS TAB/CAP PO SCH (12:04)
[2017-02-14] MEDS: SENNOSIDES/DOCUSATE SODIUM TAB PO SCH (12:05)
[2017-02-14] MEDS: PREGABALIN 75 MG CAP PO SCH (12:05)
[2017-02-14] MEDS: MULTIVITAMINS 1 EACH TAB PO SCH (12:05)
[2017-02-14] MEDS: THIAMINE HCL 100 MG TAB PO SCH (12:05)
[2017-02-14] MEDS: ASPIRIN EC 81 MG TAB PO SCH (12:06)
[2017-02-14] MEDS: PROMETHAZINE HCL 25 MG/ML INJ IVP PRN (12:21)
--- NOTE | 2017-02-14 13:55 | ASMTCMCOM ---
CM Note CM Note Notes: Pt medically stable for d/c, no CM d/c needs identified. Date Signed: 02/14/2017 01:54 PM Electronically Signed By:HAFSA Bermudez
[2017-02-14 17:16] VITALS: BP 101/64; PULSE 97; TEMP 99.4; O2SAT 97
--- NOTE | 2017-02-15 11:19 | ASDISCHSUM ---
Discharge Information Plan Status:Home with No Needs Medically Cleared to Leave: Discharge Date:02/14/2017 06:32 PM CM D/C Disposition:Home, Routine, Self-Care ADT D/C Disposition:Home, Routine, Self-Care Projected Discharge Date:02/14/2017 06:32 PM Transportation at D/C: Discharge Delay Reason: Follow-Up Date:02/14/2017 06:32 PM Discharge Slot: Final Diagnosis: Placement Information Patient Contact Information Contact Name:TIMUR Relationship: Address:[address] Home Phone: City:[place] Alternate Phone: [facility]/Zip Code:[place] [address] Email: Financial Information Financial Class:HMO and PPO Plans Primary Plan Desc: OUT OF STATE PPO Primary Plan Number:[id number] Secondary Plan Desc: Secondary Plan Number: Assessment Information [facility] CM Progress Note CM Note CM Note Notes: Reviewed chart, spoke w/ KAROLYN Hernandez. Pt s/p CONCEPCIÓN for hip dysplasia. Pt lives w/ her . Anticipate pt will likely d/c home independently when medically stable. CM will cont to follow for potential needs. Date Signed: 02/10/2017 06:06 PM Electronically Signed By:Michelle Melendez RN [facility] CM Progress Note CM Note CM Note Notes: Pt medically stable for d/c, no CM d/c needs identified. Date Signed: 02/14/2017 01:54 PM Electronically Signed By:HAFSA Bermudez Intervention Information
== END 2017-02-14 18:32 | disposition home or self-care (01) | DRG 517 ==
LOC: F3N 05:46
PROVIDERS: ADMIT Orthopaedic Surgery Sports Medicine; ATTEND Orthopaedic Surgery Sports Medicine
PROC: 0QS404Z Reposition Right Acetabulum with Internal Fixation Device, Open Approach (ICD-10-PCS; principal; 2017-02-09 07:15)
DX: Q65.89 Other specified congenital deformities of hip (principal)
CPT/HCPCS: 97110-GP; 97116-GP; 97161-GP; 97166-GO; 97530-GP; 97535-GO; C1713; J1170; J2250; J2370; J2405; J2550; J2704; J3010; J7060

== ENCOUNTER 2017-09-03 10:10 | Day surgery (SDC) | payer BC ==
--- NOTE | 2017-09-02 20:22 | PDGENHP ---
History and Physical - Chief Complaint LEFT HIP PAIN - History of Present Illness Diagnosis: 1. Bilateral~Hip Dyplasia; RIGHT side symptomatic, labral tear HISTORY OF PRESENT ILLNESS: Kimiis a 27 y.o.~very ~active female~who I have had the pleasure to consult on today. I have enjoyed meeting her. She~lives in [place]. 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 ~She~is ; she~has no~children. ~Jordana Reevesenjoys training for an olympic triathlon, sprint triathlon, high intensity interval traning,hiking, skiing, rock climbing. Jordana's~right~hip pain~started several months ago, approximately 6 months ago. She reports a sprained ankle in March 2016 but little~recalled trauma or injury to the right hip in May 2016, and with no~previous complaints. Kimihas~a known history of hip dysplasia when she was given results after an MRI ordered by Dr. Doss in [place]. Presentation today is of posterior right~hip pain~with lateral hip pain as well. ~The hip does not~wake her~at night and does~click and catch on her. Sitting can be a real struggle~for her. Kimidoes~report suffering from lower back pain episodes. Kimihas~participated in physical therapy twice over two different sessions for 2-3 months each. ~has~tried other conservative measures including chiropractic treatments and accupuncture, dry needling, massage and graston. She ~has not~received sufficient symptomatic improvement. Kimihas~utilized medication for pain management, including CBD oils. She has an intolerance to NSAIDs causing severe nausea Kimihas stiffness but is without pain on the left hip. Kimiunderstands that she~has a hip and pelvis problem which should be researched and wishes to get a better understanding of her~hip status, followed by an establishment of a treatment strategy, hoping she~would be able to get back to her~well being active life. History: Past medical history: ~ ciliac, hypothyroid Relevant familial history: None which is relevant Past surgical history: None Kiimhas never received general anesthesia. I have reviewed, verified and agree with the past medical, surgical, family and social history. Current Medications:~has a current medication list which includes the following prescription(s): levothyroxine and multivitamin. ALLERGIES:~is allergic to penicillins. Objective: Physical Examination: Kimiis 5~feet 8~inches tall and weighs 160~Lbs. Kimiis AAO x3; she~is well-nourished, in NAD. Skin is warm and dry. ~Breathing is non-labored. ~CV with RRR by pulse. Abdomen is soft, NTND. Currently, she~walks with a normal~gait. Trendelenburg sign is negative~and proprioception is reduced, both~sides. She~presents with no~signs of joint laxity. Beightons Score: 0 She~is fit looking. ~~ Lower spine examination is negative~for sciatic or femoral nerve irritation with negative~SLR &~femoral stretch tests. Range of motion of the spine is normal~for flexion, extension, and rotations, with no~associated pain. TTP to the Lumbar paraspinal muscles bilateral. Strength, Sensation and pulses are normal - bilaterally Ankles and knees exams are normal~and no~mal-alignment is evident. She~has no leg length discrepancy. Thigh circumference is symmetric~with no evidence for muscle atrophy~on both~ sides. Hip ROM (degrees): FL ER At 90~hip FL IR At 90~hip FL AB AD EX IR Neutral hip ER Neutral hip R 105 40 45 40 5 10 50 25 L 110 40 40 35-40 5 10 50 25 Specific hip and pelvis tests: Quadrant ALEX Roll Add. Longus R +++ +++ Negative Negative L + + Negative Negative Glut. Med ITB Pos. Imp R +++ 5/5 strength Negative 5/5 strength Negative L Negative 5/5 strength Negative 5/5 strength Negative Squeeze test measured weak Bony Symphysis pubis is painful~to touch while concentric activity of the rectus abdominis, does~produce pain at its insertion on the right side. Ilio Psos specific tests are positive for pain during cycling for the right hip~ and remarkable for painful snap~on the right HF has negative both hips. Anterior/posterior~capsule tenderness right >> left Greater trochanteric burse is painful~on the right hip~>> left Piriformis tests: FAIR is negative, with no~local signs of neuritis related to sciatic nerve. SIJs examination is produces pain on right side~with~abnormal ALEX~in relation and local tenderness. Hamstrings tests are positive for~tendinopathy the right hip~(muscle belly) On a daily basis, the following percentages reflect Jordana's overall total pain : Deep hip: 75% (posterior capsule) GT: 25% Imaging: Radiology studies which I have personally reviewed, analyzed and measured are below: XR: AP of the hip and pelvis: Performed in a good~technique Coccyx is at the level of the pubic symphysis 0 degrees [place] Lines are interrupted R>L Minimal~Pathological signs are seen in the Symphysis Pubis. Minimal~Pathological signs are seen at the Ischial tuberosity. ~ Specific measurements show: NSA~ LCE Sourcil~Angle Sharp's angle Lat. Cam Lat. Pincer C.Over~sign Head~Coverage % ATDmm R N 13 18 44 - - 12-2 60 N L N 9 25 47 - - 12-12:30 60 N Pos. wall sign ISS NAD ~~Dysplasia Comments R ++ Negative 10.3~mm +++ L ++ Negative 11.6~mm +++ Sclerosis Sup. Lat. OA Cysts Joint Space-WBZ Joint Space-Medial R Negative Negative Negative 7.4~mm 5.9~mm L Negative Negative Negative 7.4~mm 7.2~mm X Table lateral: Anterior cam lesion is seen~on both hips. Alpha Angle: ~ Right 59~dergrees Left 58~degrees MRI shows: decreased cartilage coverage of Right hip, no bone edema, labral tear ~~~~~~~~~~ Impression and plan: Kimiis a 27 y.o.~active female~suffering from symptomatic right~hip pain due to Hip Dyplasia~causing significant disability to her~and altering her~ sport and life activities. Physical examination, imaging, and her~story correspond with the diagnosis mentioned above. I explained that hip dysplasia is a condition wherein the hip joint has excessive play~and instability due to a variety of factors, including the depth and adequacy of the socket, the orientation of the femur bone, and ligament laxity around the hip joint. Dysplasia ranges in severity from borderline to seth, with treatment options being specific to the specific nature of the problem. Left untreated, the instability in the hip joint can cause progressive tearing of the labrum and deterioration of the surface cartilage, ultimately resulting in progressive osteoarthritis of the hip. I explained that femoroacetabular impingement (QUINTIN - Cam type) arises due to a bony or soft tissue conflict between the femur (ball) and acetabulum (socket) caused by an abnormality in the shape of the femoral head and neck. Over time, repetitive impingement can result in damage to the labrum and adjacent surface cartilage within the socket, ultimately giving rise to progressive osteoarthritis of the hip. I explained that although a labral tear can be a source of pain, it is rarely the root of the problem and typically occurs secondary to an underlying abnormality in the shape and mechanics of the hip joint. I reviewed conservative treatment options for Dysplasia and QUINTIN including activity modification to avoid positions of impingement or instability, physical therapy, non-steroidal anti-inflammatory medications, and various injections (corticosteroid and PRP) aimed at reducing inflammation in the hip joint or/and preventing dynamic instability and impingement. PRP injections may promote healing and reduce symptoms in certain cases but it will not repair chronically damaged tissue. Although these measures may help to buy time~and reduce current level of symptoms, they are not a definitive solution to the problem given the underlying abnormality in the shape of the hip joint. Patients who have failed conservative management and continue to experience symptoms are candidates for definitive surgical treatment, which may consist of hip arthroscopy alone or in combination with more invasive bony realignment procedures of the hip socket and/or femur called periacetabular osteotomy (CONCEPCIÓN). Hip arthroscopy typically includes treating the labrum with either repair or reconstruction of the torn labrum; as well as addressing the underlying abnormalities by restoring the normal shape to the hip joint. If the cartilage is damaged a Microfracture surgical procedure may also be necessary to help stimulate the growth of fibrocartilage. If a patient requires a labral reconstruction or a Microfracture, the initial rehabilitation from the surgery may take longer, but the rat exterminator results are typically favorable. I reviewed the technical aspects of periacetabular osteotomy (CONCEPCIÓN) including risks, benefits, and expected course of recovery. Jordana~understands that CONCEPCIÓN is an inpatient procedure carried out through two medium sized incisions on the front and back of the hip joint. The hip socket is cut, realigned, and stabilized with 2 3 internal screws. Risks include infection, bleeding, injury to nearby nerves or vessels, stiffness, persistent pain, instability, failure of bony healing, implant related complications, and venous thromboembolic disease. Rarely, revision surgery may be required to address these problems. Risks, potential complications, side effects and recovery from surgical procedure were discussed in length. We explained how this surgery is an open procedure, and though patients tend to do well in the long-term, it involves significant pain in the first 2-4 weeks post-op and a rather lengthy rehab.~Overall recovery takes approximately 6 12~months depending on the extent of damage and degree of repair. Kimiunderstands that she~will undergo hip arthroscopy 1 week prior to the CONCEPCIÓN to address damage inside the hip joint. Kimiunderstands that hip arthroscopy and CONCEPCIÓN are two separate procedures that are best performed one week apart, with the arthroscopy commencing first to "tighten up" any pathology evident in the hip joint (labral repair, etc.) and the CONCEPCIÓN open procedure occurring 7-10 days later to realign the acetabulum. Kimiwill review the info presented. In order to obtain more detailed information regarding the alignment, orientation, and shape of the bony hip and pelvis I will order a CT scan to be performed. The results of the CT scan, including femoral torsion and acetabular version measured values and 3D images, will aid me in deciding on the best treatment strategy and surgical pre-planning. Kimiwill contact us if she~wishes to pursue further treatment in the future. Kimiis happy with this plan. I have also supplied her~with handouts, outlining the expected surgical treatment and rehab involved. I wish~JordanaLeandroall the best, ~~ Celine Campbell ATC History Information - Allergies/Home Medication List Allergies/Adverse Reactions: amoxicillin Allergy (Verified 08/20/17 10:40) Swelling/neck,face,throat latex Allergy (Verified 08/20/17 10:40) Redness Milk Containing Products [dairy] Allergy (Verified 08/20/17 10:40) oxycodone Allergy (Verified 08/20/17 10:40) VERTIGO Penicillins Allergy (Verified 08/20/17 10:40) Swelling/neck,face,throat soy Allergy (Verified 08/20/17 10:40) CELIAC Allergy (Uncoded 08/20/17 10:40) Home Medications: Cholecalciferol Vit D3 [Vitamin D3 2000 units tab (OTC)] 2,000 units PO DAILY [Last Taken 01/22/17] Herbals/Supplements -Info Only 1 ea PO DAILY 01/08/17 [Last Taken 01/22/17] Levothyroxine [Synthroid 100 mcg (*)] 100 mcg PO DAILY06 01/08/17 [Last Taken 04:15] Multivitamins [Multivitamin (*)] 1 each PO DAILY 01/08/17 [Last Taken 01/22/17] Thiamine HCl [B-1] 100 mg PO DAILY 01/08/17 [Last Taken 01/22/17] I have personally reviewed and updated: medical history - Social History Smoking Status: Never smoked Review of Systems Review of Systems: Physical Exam Physical Exam:
[2017-09-03] MEDS ORDERED: PREGABALIN 150 MG CAP PO ONE (10:38)
[2017-09-03] MEDS ORDERED: ACETAMINOPHEN 500 MG TAB PO ONE (10:38)
[2017-09-03] MEDS ORDERED: CLINDAMYCIN 900 MG/DEXTROSE 50 ML IV ONE (10:38)
[2017-09-03] MEDS ORDERED: EPINEPHrine 30 MG/30 ML MDV (0.1 MG/0.1 ML) ONE (10:40)
[2017-09-03] MEDS ORDERED: BUPIVACAINE 0.25% 30 ML SDV ONE (10:40)
[2017-09-03] MEDS ORDERED: LR 1,000 ML IV ONE (11:08)
[2017-09-03] MEDS ORDERED: LIDOCAINE 1% 2 ML INJ ID PRN (11:08)
--- NOTE | 2017-09-03 11:30 | PDANEPAE ---
ANE History of Present Illness left hip scope ANE Past Medical History - Cardiovascular History Hx Hypertension: No Hx Arrhythmias: No Hx Chest Pain: No Hx Coronary Artery / Peripheral Vascular Disease: No Hx CHF / Valvular Disease: No Hx Palpitations: No - Pulmonary History Hx COPD: No Hx Asthma/Reactive Airway Disease: No Hx Recent Upper Respiratory Infection: No Hx Oxygen in Use at Home: No Hx Sleep Apnea: No Sleep Apnea Screening Result - Last Documented: Negative - Neurologic History Hx Cerebrovascular Accident: No Hx Seizures: No Hx Dementia: No - Endocrine History Hx Diabetes: No Endocrine History Comment: hypothyroidism - Renal History Hx Renal Disorders: No - Liver History Hx Hepatic Disorders: No - Neurological & Psychiatric Hx Hx Neurological and Psychiatric Disorders: No - Cancer History Hx Cancer: No - Congenital Disorder History Hx Congenital Disorders: Yes Congenital History Comment: bilateral hip dysplasia - GI History Hx Gastrointestinal Disorders: Yes Gastrointestinal History Comment: celiac disease. hx of colonoscopies - Other Health History Other Health History: tmj uses mouthguard at [facility]. wears glasses - Chronic Pain History Chronic Pain: Yes (left hip) - Surgical History Prior Surgeries: 09/03/17 left hip scope, femoroplasty and labral repair with Romana-Gianluca. 02/09/17 right CONCEPCIÓN with Romana-Gianluca. 01/29/17 right hip femoroplasty, labral repair with Romana Gianluca ANE Review of Systems Review of systems is: negative Review of Systems: - Exercise capacity Exercise capacity: >=4 METS METS (RN): 4 METS ANE Patient History - Allergies Allergies/Adverse Reactions: adhesive tape Allergy (Verified 09/03/17 11:14) Rash amoxicillin Allergy (Verified 08/20/17 10:40) Swelling/neck,face,throat latex Allergy (Verified 08/20/17 10:40) Redness Milk Containing Products [dairy] Allergy (Verified 08/20/17 10:40) oxycodone Allergy (Verified 08/20/17 10:40) VERTIGO Penicillins Allergy (Verified 08/20/17 10:40) Swelling/neck,face,throat soy Allergy (Verified 08/20/17 10:40) CELIAC Allergy (Uncoded 08/20/17 10:40) - Home Medications Home Medications: Cholecalciferol Vit D3 [Vitamin D3 2000 units tab (OTC)] 2,000 units PO DAILY [Last Taken 08/24/17] Herbals/Supplements -Info Only 1 ea PO DAILY 01/08/17 [Last Taken 08/24/17] Levothyroxine [Synthroid 100 mcg (*)] 100 mcg PO DAILY06 01/08/17 [Last Taken 08:30] Multivitamins [Multivitamin (*)] 1 each PO DAILY 01/08/17 [Last Taken 08/24/17] Thiamine HCl [B-1] 100 mg PO DAILY 01/08/17 [Last Taken 08/24/17] - NPO status NPO Status: no food or drink >8 hours NPO Since - Liquids (Date): 09/02/17 NPO Since - Liquids (Time): 22:00 NPO Since - Solids (Date): 09/02/17 NPO Since - Solids (Time): 22:00 - Anes Hx Anes Hx: no prior problems - Smoking Hx Smoking Status: Never smoked - Alcohol Use Alcohol Use: Occasionally - Family Anes Hx Family Hx Anesthesia Complications: none ANE Labs/Vital Signs - Vital Signs Vital Signs: reviewed preoperatively; see RN documention for details Blood Pressure: 126/88 Heart Rate: 81 Respiratory Rate: 16 O2 Sat (%): 99 Height: 172.72 cm Weight: 77.111 kg ANE Physical Exam - Airway Mallampati Score: Class 1 Mouth exam: normal dental/mouth exam - Pulmonary Pulmonary: no respiratory distress - Cardiovascular Cardiovascular: regular rate and rhythym - ASA Status ASA Status: II ANE Anesthesia Plan Anesthesia Plan: general endotracheal anesthesia
[2017-09-03] MEDS ORDERED: MIDAZOLAM 2 MG/2 ML VIAL IVP ONE (11:31)
[2017-09-03] MEDS ORDERED: fentaNYL 100 MCG/2 ML INJ ONE ×3 (11:40→15:11)
[2017-09-03] MEDS ORDERED: ROCURONIUM 50 MG/5 ML VIAL ONE (11:40)
[2017-09-03] MEDS ORDERED: LIDOCAINE 2% 5 ML SDV ONE (11:40)
[2017-09-03] MEDS ORDERED: PROPOFOL 200 MG/20 ML VIAL ONE (11:41)
[2017-09-03] MEDS ORDERED: MIDAZOLAM 2 MG/2 ML VIAL ONE (11:54)
[2017-09-03] MEDS ORDERED: DEXAMETHASONE 4 MG/ML VIAL ONE ×2 (12:24)
[2017-09-03] MEDS ORDERED: PROPOFOL/EMULSION 500 MG/50 ML BOTTLE IV ONE ×2 (12:27→14:15)
[2017-09-03] MEDS ORDERED: REMIFENTANIL HCL 1 MG VIAL ONE ×2 (12:27→14:15)
[2017-09-03] MEDS ORDERED: KETOROLAC 30 MG/1 ML SDV ONE (14:41)
[2017-09-03] MEDS ORDERED: ONDANSETRON 4 MG/2 ML VIAL ONE ×2 (14:42→16:03)
[2017-09-03] MEDS ORDERED: DIAZEPAM 5 MG/ML 1 ML SYR IVP PRN (15:08)
[2017-09-03] MEDS ORDERED: HYDROCODONE/APAP 5/325 TAB PO PRN (15:08)
[2017-09-03] MEDS ORDERED: ALBUTEROL 3 ML DEYVIAL IH PRN (15:08)
[2017-09-03] MEDS ORDERED: PROMETHAZINE HCL 25 MG/ML INJ IVP PRN (15:08)
[2017-09-03] MEDS ORDERED: NALOXONE HCL 0.4 MG/ML INJ IVP PRN (15:08)
[2017-09-03] MEDS ORDERED: ONDANSETRON 4 MG/2 ML VIAL IVP PRN (15:08)
[2017-09-03] MEDS ORDERED: HYDROmorphONE/DILAUDID 1 MG/ML INJ IVP PRN (15:08)
[2017-09-03] MEDS: fentaNYL 100 MCG/2 ML INJ IVP PRN ×3 (15:10→15:40)
[2017-09-03] MEDS: MEPERIDINE 25 MG/ML SYR IVP PRN ×3 (15:10→15:40)
[2017-09-03] MEDS ORDERED: MEPERIDINE 25 MG/ML SYR ONE (15:11)
[2017-09-03] MEDS ORDERED: HYDROCODONE/APAP 5/325 TAB ONE (16:15)
[2017-09-03 16:17] VITALS: TEMP 97.2
[2017-09-03 17:06] VITALS: BP 109/63; PULSE 95; RESP 14; O2SAT 96
== END 2017-09-03 17:36 | disposition home or self-care (01) ==
LOC: FSGY 10:10
PROVIDERS: ATTEND Orthopaedic Surgery Sports Medicine
PROC: 0SQB4ZZ Repair Left Hip Joint, Percutaneous Endoscopic Approach (ICD-10-PCS; principal; 2017-09-03 11:30)
PROC: 0SBB4ZZ Excision of Left Hip Joint, Percutaneous Endoscopic Approach (ICD-10-PCS; principal; 2017-09-03 11:30)
DX: M25.852 Other specified joint disorders, left hip (principal); S73.102A Unspecified sprain of left hip, initial encounter; Q65.89 Other specified congenital deformities of hip; M94.252 Chondromalacia, left hip
CPT/HCPCS: C1713; J0171; J1100; J1885; J2175; J2250; J2405; J2704; J3010

== ENCOUNTER 2017-09-10 05:42 | Inpatient (IN) | payer BC ==
--- NOTE | 2017-09-09 20:44 | PDGENHP ---
History and Physical - Chief Complaint Left Hip Pain - History of Present Illness 1. Bilateral~Hip Dyplasia; RIGHT side symptomatic, labral tear HISTORY OF PRESENT ILLNESS: Kimiis a 27 y.o.~very ~active female~who I have had the pleasure to consult on today. I have enjoyed meeting her. She~lives in [place]. 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 ~She~is ; she~has no~children. ~Jordana eRevesenjoys training for an olympic triathlon, sprint triathlon, high intensity interval traning,hiking, skiing, rock climbing. Jordana's~right~hip pain~started several months ago, approximately 6 months ago. She reports a sprained ankle in March 2016 but little~recalled trauma or injury to the right hip in May 2016, and with no~previous complaints. Kimihas~a known history of hip dysplasia when she was given results after an MRI ordered by Dr. Doss in [place]. Presentation today is of posterior right~hip pain~with lateral hip pain as well. ~The hip does not~wake her~at night and does~click and catch on her. Sitting can be a real struggle~for her. Kimidoes~report suffering from lower back pain episodes. Kimihas~participated in physical therapy twice over two different sessions for 2-3 months each. ~has~tried other conservative measures including chiropractic treatments and accupuncture, dry needling, massage and graston. She ~has not~received sufficient symptomatic improvement. Kimihas~utilized medication for pain management, including CBD oils. She has an intolerance to NSAIDs causing severe nausea Kimihas stiffness but is without pain on the left hip. Kimiunderstands that she~has a hip and pelvis problem which should be researched and wishes to get a better understanding of her~hip status, followed by an establishment of a treatment strategy, hoping she~would be able to get back to her~well being active life. History: Past medical history: ~ ciliac, hypothyroid Relevant familial history: None which is relevant Past surgical history: None Kimihas never received general anesthesia. I have reviewed, verified and agree with the past medical, surgical, family and social history. Current Medications:~has a current medication list which includes the following prescription(s): levothyroxine and multivitamin. ALLERGIES:~is allergic to penicillins. Objective: Physical Examination: Kimiis 5~feet 8~inches tall and weighs 160~Lbs. Kimiis AAO x3; she~is well-nourished, in NAD. Skin is warm and dry. ~Breathing is non-labored. ~CV with RRR by pulse. Abdomen is soft, NTND. Currently, she~walks with a normal~gait. Trendelenburg sign is negative~and proprioception is reduced, both~sides. She~presents with no~signs of joint laxity. Beightons Score: 0 She~is fit looking. ~~ Lower spine examination is negative~for sciatic or femoral nerve irritation with negative~SLR &~femoral stretch tests. Range of motion of the spine is normal~for flexion, extension, and rotations, with no~associated pain. TTP to the Lumbar paraspinal muscles bilateral. Strength, Sensation and pulses are normal - bilaterally Ankles and knees exams are normal~and no~mal-alignment is evident. She~has no leg length discrepancy. Thigh circumference is symmetric~with no evidence for muscle atrophy~on both~ sides. Hip ROM (degrees): FL ER At 90~hip FL IR At 90~hip FL AB AD EX IR Neutral hip ER Neutral hip R 105 40 45 40 5 10 50 25 L 110 40 40 35-40 5 10 50 25 Specific hip and pelvis tests: Quadrant ALEX Roll Add. Longus R +++ +++ Negative Negative L + + Negative Negative Glut. Med ITB Pos. Imp R +++ 5/5 strength Negative 5/5 strength Negative L Negative 5/5 strength Negative 5/5 strength Negative Squeeze test measured weak Bony Symphysis pubis is painful~to touch while concentric activity of the rectus abdominis, does~produce pain at its insertion on the right side. Ilio Psos specific tests are positive for pain during cycling for the right hip~ and remarkable for painful snap~on the right HF has negative both hips. Anterior/posterior~capsule tenderness right >> left Greater trochanteric burse is painful~on the right hip~>> left Piriformis tests: FAIR is negative, with no~local signs of neuritis related to sciatic nerve. SIJs examination is produces pain on right side~with~abnormal ALEX~in relation and local tenderness. Hamstrings tests are positive for~tendinopathy the right hip~(muscle belly) On a daily basis, the following percentages reflect Jordana's overall total pain : Deep hip: 75% (posterior capsule) GT: 25% Imaging: Radiology studies which I have personally reviewed, analyzed and measured are below: XR: AP of the hip and pelvis: Performed in a good~technique Coccyx is at the level of the pubic symphysis 0 degrees [place] Lines are interrupted R>L Minimal~Pathological signs are seen in the Symphysis Pubis. Minimal~Pathological signs are seen at the Ischial tuberosity. ~ Specific measurements show: NSA~ LCE Sourcil~Angle Sharp's angle Lat. Cam Lat. Pincer C.Over~sign Head~Coverage % ATDmm R N 13 18 44 - - 12-2 60 N L N 9 25 47 - - 12-12:30 60 N Pos. wall sign ISS NAD ~~Dysplasia Comments R ++ Negative 10.3~mm +++ L ++ Negative 11.6~mm +++ Sclerosis Sup. Lat. OA Cysts Joint Space-WBZ Joint Space-Medial R Negative Negative Negative 7.4~mm 5.9~mm L Negative Negative Negative 7.4~mm 7.2~mm X Table lateral: Anterior cam lesion is seen~on both hips. Alpha Angle: ~ Right 59~dergrees Left 58~degrees MRI shows: decreased cartilage coverage of Right hip, no bone edema, labral tear ~~~~~~~~~~ Impression and plan: Kimiis a 27 y.o.~active female~suffering from symptomatic right~hip pain due to Hip Dyplasia~causing significant disability to her~and altering her~ sport and life activities. Physical examination, imaging, and her~story correspond with the diagnosis mentioned above. I explained that hip dysplasia is a condition wherein the hip joint has excessive play~and instability due to a variety of factors, including the depth and adequacy of the socket, the orientation of the femur bone, and ligament laxity around the hip joint. Dysplasia ranges in severity from borderline to seth, with treatment options being specific to the specific nature of the problem. Left untreated, the instability in the hip joint can cause progressive tearing of the labrum and deterioration of the surface cartilage, ultimately resulting in progressive osteoarthritis of the hip. I explained that femoroacetabular impingement (QUINTIN - Cam type) arises due to a bony or soft tissue conflict between the femur (ball) and acetabulum (socket) caused by an abnormality in the shape of the femoral head and neck. Over time, repetitive impingement can result in damage to the labrum and adjacent surface cartilage within the socket, ultimately giving rise to progressive osteoarthritis of the hip. I explained that although a labral tear can be a source of pain, it is rarely the root of the problem and typically occurs secondary to an underlying abnormality in the shape and mechanics of the hip joint. I reviewed conservative treatment options for Dysplasia and QUINTIN including activity modification to avoid positions of impingement or instability, physical therapy, non-steroidal anti-inflammatory medications, and various injections (corticosteroid and PRP) aimed at reducing inflammation in the hip joint or/and preventing dynamic instability and impingement. PRP injections may promote healing and reduce symptoms in certain cases but it will not repair chronically damaged tissue. Although these measures may help to buy time~and reduce current level of symptoms, they are not a definitive solution to the problem given the underlying abnormality in the shape of the hip joint. Patients who have failed conservative management and continue to experience symptoms are candidates for definitive surgical treatment, which may consist of hip arthroscopy alone or in combination with more invasive bony realignment procedures of the hip socket and/or femur called periacetabular osteotomy (CONCEPCIÓN). Hip arthroscopy typically includes treating the labrum with either repair or reconstruction of the torn labrum; as well as addressing the underlying abnormalities by restoring the normal shape to the hip joint. If the cartilage is damaged a Microfracture surgical procedure may also be necessary to help stimulate the growth of fibrocartilage. If a patient requires a labral reconstruction or a Microfracture, the initial rehabilitation from the surgery may take longer, but the penitentiary results are typically favorable. I reviewed the technical aspects of periacetabular osteotomy (CONCEPCIÓN) including risks, benefits, and expected course of recovery. Jordana~understands that CONCEPCIÓN is an inpatient procedure carried out through two medium sized incisions on the front and back of the hip joint. The hip socket is cut, realigned, and stabilized with 2 3 internal screws. Risks include infection, bleeding, injury to nearby nerves or vessels, stiffness, persistent pain, instability, failure of bony healing, implant related complications, and venous thromboembolic disease. Rarely, revision surgery may be required to address these problems. Risks, potential complications, side effects and recovery from surgical procedure were discussed in length. We explained how this surgery is an open procedure, and though patients tend to do well in the long-term, it involves significant pain in the first 2-4 weeks post-op and a rather lengthy rehab.~Overall recovery takes approximately 6 12~months depending on the extent of damage and degree of repair. Kimiunderstands that she~will undergo hip arthroscopy 1 week prior to the CONCEPCIÓN to address damage inside the hip joint. Kimiunderstands that hip arthroscopy and CONCEPCIÓN are two separate procedures that are best performed one week apart, with the arthroscopy commencing first to "tighten up" any pathology evident in the hip joint (labral repair, etc.) and the CONCEPCIÓN open procedure occurring 7-10 days later to realign the acetabulum. Kimiwill review the info presented. In order to obtain more detailed information regarding the alignment, orientation, and shape of the bony hip and pelvis I will order a CT scan to be performed. The results of the CT scan, including femoral torsion and acetabular version measured values and 3D images, will aid me in deciding on the best treatment strategy and surgical pre-planning. Kimiwill contact us if she~wishes to pursue further treatment in the future. Kimiis happy with this plan. I have also supplied her~with handouts, outlining the expected surgical treatment and rehab involved. I wish~JordanaLeandroall the best, ~~ Celine Campbell, KARYNA History Information - Allergies/Home Medication List Allergies/Adverse Reactions: adhesive tape Allergy (Verified 09/03/17 11:14) Rash amoxicillin Allergy (Verified 08/20/17 10:40) Swelling/neck,face,throat latex Allergy (Verified 08/20/17 10:40) Redness Milk Containing Products [dairy] Allergy (Verified 08/20/17 10:40) oxycodone Allergy (Verified 08/20/17 10:40) VERTIGO Penicillins Allergy (Verified 08/20/17 10:40) Swelling/neck,face,throat soy Allergy (Verified 08/20/17 10:40) CELIAC Allergy (Uncoded 08/20/17 10:40) Home Medications: Cholecalciferol Vit D3 [Vitamin D3 2000 units tab (OTC)] 2,000 units PO DAILY [Last Taken 08/24/17] Herbals/Supplements -Info Only 1 ea PO DAILY 01/08/17 [Last Taken 08/24/17] Levothyroxine [Synthroid 100 mcg (*)] 100 mcg PO DAILY06 01/08/17 [Last Taken 08:30] Multivitamins [Multivitamin (*)] 1 each PO DAILY 01/08/17 [Last Taken 08/24/17] Thiamine HCl [B-1] 100 mg PO DAILY 01/08/17 [Last Taken 08/24/17] I have personally reviewed and updated: medical history - Social History Smoking Status: Never smoked Review of Systems Review of Systems: Physical Exam Physical Exam:
[2017-09-10] MEDS ORDERED: CLINDAMYCIN 900 MG/DEXTROSE 50 ML IV ONE (05:52)
[2017-09-10] MEDS ORDERED: TRANEXAMIC ACID 1,000 MG in NS (SYRINGE) 50 ML IV ONE (05:52)
[2017-09-10] MEDS ORDERED: PREGABALIN 150 MG CAP PO ONE (05:52)
[2017-09-10] MEDS ORDERED: SCOPOLAMINE HYDROBROMIDE 1 MG/3 DAYS PATCH TD ONE (05:52)
[2017-09-10] MEDS ORDERED: ACETAMINOPHEN 500 MG TAB PO ONE (05:52)
[2017-09-10] MEDS ORDERED: LIDOCAINE 1% 2 ML INJ ID PRN (05:53)
[2017-09-10] MEDS ORDERED: LR 1,000 ML IV ONE (05:53)
[2017-09-10] MEDS ORDERED: CITRATE DEXTROSE SOLN 500 ML BAG ONE ×2 (06:52→07:59)
[2017-09-10] MEDS ORDERED: MIDAZOLAM 2 MG/2 ML VIAL IVP ONE (07:03)
[2017-09-10] MEDS ORDERED: PROPOFOL/EMULSION 500 MG/50 ML BOTTLE IV ONE ×3 (07:20→11:38)
[2017-09-10] MEDS ORDERED: fentaNYL 100 MCG/2 ML INJ ONE (07:20)
[2017-09-10] MEDS ORDERED: morphINE PF 5 MG/10 ML INJ ONE (07:20)
[2017-09-10] MEDS ORDERED: ROCURONIUM 50 MG/5 ML VIAL ONE (07:32)
[2017-09-10] MEDS ORDERED: ONDANSETRON 4 MG/2 ML VIAL ONE (07:32)
[2017-09-10] MEDS ORDERED: DEXAMETHASONE 4 MG/ML VIAL ONE ×2 (07:32)
[2017-09-10] MEDS ORDERED: LIDOCAINE 2% 100 MG/5 ML SYR ONE (07:32)
--- NOTE | 2017-09-10 08:22 | PDANEPAE ---
ANE History of Present Illness hip malrotation s/f CONCEPCIÓN left ANE Past Medical History - Cardiovascular History Hx Hypertension: No Hx Arrhythmias: No Hx Chest Pain: No Hx Coronary Artery / Peripheral Vascular Disease: No Hx CHF / Valvular Disease: No Hx Palpitations: No - Pulmonary History Hx COPD: No Hx Asthma/Reactive Airway Disease: No Hx Recent Upper Respiratory Infection: No Hx Oxygen in Use at Home: No Hx Sleep Apnea: No Sleep Apnea Screening Result - Last Documented: Negative - Neurologic History Hx Cerebrovascular Accident: No Hx Seizures: No Hx Dementia: No - Endocrine History Hx Diabetes: No Endocrine History Comment: hypothyroidism - Renal History Hx Renal Disorders: No - Liver History Hx Hepatic Disorders: No - Neurological & Psychiatric Hx Hx Neurological and Psychiatric Disorders: No - Cancer History Hx Cancer: No - Congenital Disorder History Hx Congenital Disorders: Yes Congenital History Comment: bilateral hip dysplasia - GI History Hx Gastrointestinal Disorders: Yes Gastrointestinal History Comment: celiac disease. hx of colonoscopies - Other Health History Other Health History: tmj uses mouthguard at [facility]. wears glasses - Chronic Pain History Chronic Pain: Yes (left hip) - Surgical History Prior Surgeries: 09/03/17 left hip scope, femoroplasty and labral repair with Romana-Gianluca. 02/09/17 right CONCEPCIÓN with Romana-Gianluca. 01/29/17 right hip femoroplasty, labral repair with Romana Gianluca ANE Review of Systems Review of Systems: - Exercise capacity METS (RN): 4 METS ANE Patient History - Allergies Allergies/Adverse Reactions: adhesive tape Allergy (Verified 09/03/17 11:14) Rash amoxicillin Allergy (Verified 08/20/17 10:40) Swelling/neck,face,throat latex Allergy (Verified 08/20/17 10:40) Redness Milk Containing Products [dairy] Allergy (Verified 08/20/17 10:40) oxycodone Allergy (Verified 08/20/17 10:40) VERTIGO Penicillins Allergy (Verified 08/20/17 10:40) Swelling/neck,face,throat soy Allergy (Verified 08/20/17 10:40) CELIAC Allergy (Uncoded 08/20/17 10:40) - Home Medications Home medications: home medication list seen and reviewed Home Medications: Cholecalciferol Vit D3 [Vitamin D3 2000 units tab (OTC)] 2,000 units PO DAILY [Last Taken 08/27/17] Herbals/Supplements -Info Only 1 ea PO DAILY 01/08/17 [Last Taken 08/27/17] Levothyroxine [Synthroid 100 mcg (*)] 100 mcg PO DAILY06 01/08/17 [Last Taken 08:30] Multivitamins [Multivitamin (*)] 1 each PO DAILY 01/08/17 [Last Taken 08/27/17] Thiamine HCl [B-1] 100 mg PO DAILY 01/08/17 [Last Taken 08/27/17] - NPO status NPO Status: no food or drink >8 hours NPO Since - Liquids (Date): 09/09/17 NPO Since - Liquids (Time): 23:00 NPO Since - Solids (Date): 09/09/17 NPO Since - Solids (Time): 21:00 - Anes Hx Hx Anesthesia Complications (with details): post op shaking - Smoking Hx Smoking Status: Never smoked - Alcohol Use Alcohol Use: Rarely - Family Anes Hx Family Anes Hx: none Family Hx Anesthesia Complications: none ANE Labs/Vital Signs - Labs Result Diagrams: 09/10/17 06:30 - Vital Signs Blood Pressure: 121/85 Heart Rate: 102 Respiratory Rate: 16 O2 Sat (%): 95 Height: 172.72 cm Weight: 77.111 kg ANE Physical Exam - Airway Neck exam: FROM Mallampati Score: Class 1 Mouth exam: normal dental/mouth exam - Pulmonary Pulmonary: no respiratory distress - Cardiovascular Cardiovascular: regular rate and rhythym - ASA Status ASA Status: II ANE Anesthesia Plan Anesthesia Plan: general endotracheal anesthesia, spinal (morphine) Urgent/Emergent Case: Nelida villanueva completed preop but documented later for safe timely pt care
[2017-09-10] MEDS ORDERED: DEXAMETHASONE 4 MG/ML VIAL IVP PRN (13:10)
[2017-09-10] MEDS ORDERED: ONDANSETRON 4 MG/2 ML VIAL IVP PRN (13:10)
[2017-09-10] MEDS ORDERED: METOCLOPRAMIDE 10 MG/2 ML VIAL IVP PRN (13:10)
[2017-09-10] MEDS ORDERED: PROMETHAZINE HCL 25 MG/ML INJ IVP PRN (13:10)
[2017-09-10] MEDS ORDERED: LR 500 ML IV PRN (13:10)
[2017-09-10] MEDS ORDERED: HYDROCODONE/APAP 5/325 TAB PO PRN (13:10)
[2017-09-10] MEDS ORDERED: MEPERIDINE 25 MG/ML SYR IVP PRN (13:10)
[2017-09-10] MEDS ORDERED: PHENYLEPHRINE HCL 100 MCG/ML SYR IVP PRN (13:10)
[2017-09-10] MEDS ORDERED: LABETALOL HCL 5 MG/ML 20 ML MDV IVP PRN (13:10)
[2017-09-10] MEDS ORDERED: ALBUTEROL 3 ML DEYVIAL IH PRN (13:10)
[2017-09-10] MEDS ORDERED: fentaNYL 100 MCG/2 ML INJ IVP PRN (13:10)
[2017-09-10] MEDS ORDERED: NALOXONE HCL 0.4 MG/ML INJ IVP PRN ×2 (13:10→13:52)
[2017-09-10] MEDS ORDERED: ACETAMINOPHEN 500 MG TAB PO PRN (13:10)
[2017-09-10] MEDS ORDERED: HYDROmorphone HCL/NS 0.5 MG/ML SYR IVP PRN (13:10)
[2017-09-10] MEDS ORDERED: ACETAMINOPHEN 325 MG TAB PO PRN (13:49)
[2017-09-10] MEDS ORDERED: LACTULOSE 20 GM/30 ML UDCUP PO PRN (13:49)
[2017-09-10] MEDS ORDERED: BISACODYL 10 MG SUPP PR PRN (13:49)
[2017-09-10] MEDS ORDERED: MAGNESIUM HYDROXIDE 30 ML UDCUP PO PRN (13:49)
[2017-09-10] MEDS: NS 1,000 ML IV SCH (14:58)
[2017-09-10] MEDS: HYDROmorphONE/DILAUDID 6 MG/30 ML PCA IV PRN (15:12)
--- NOTE | 2017-09-10 16:00 | POSTANESTH ---
Post Anesthetic Evaluation Cardiovascular Status: Normal, Stable Respiratory Status: Normal, Stable Level of Consciousness/Mental Status: Can Participate in Eval Pain Control: Adequate, Prn Tx Ordered Nausea/Vomiting Control: Adequate, Prn Tx Ordered Complications Possibly Related to Anesthesia: Other, See Comments (mild R corneal abrasion)
--- NOTE | 2017-09-10 17:19 | PDMN ---
Medical Necessity Medical necessity: GRG musculoskeletal disease: osteotomy NGA INPT only 2 days : Rowan BEEBE
--- NOTE | 2017-09-10 21:50 | SUROPNOTE ---
JARVIS Operative Report - Surgery Surgery was performed at [facility] on 09/10/17~ Diagnosis: Left 1. Hip Acetabular Dysplasia ~ Operation: Left~Akanksha Acetabular Osteotomy (CONCEPCIÓN) Surgeon: Yoni Hurd MD Outside Plant Field Engineer:~~Santos ROSENTHAL Anesthetic: General + spinal Procedure: General anesthetic. Antibiotics given. Cell saver in use. Fluoroscopy. Phase 1: Position lateral, diagonal skin incision between ischial tuberosity and greater trochanter as for posterior hip approach. Blunt split of glut max fibers. Identification of fat pad overlying sciatic nerve. Exposure of sciatic nerve under fat pad, gently retracting it away-medially to ischial tuberosity. Exposure of subcotoloid fossa proximal to short rotators. Using osteotomes and under fluoroscopy, osteotomy of subcotoloid fossa to sciatic notch proximal to ischial spine. Closure of lateral cut. Patient is turned supine. Phase 2: Skin incision just distal to ASIS. Using diathermy the iliac spine was exposed and inguinal ligament + Sartorious were retracted medially, taking the LFCN with them, protecting it. Inner ilium was dissected from iliacus muscle bluntly , with a cob and swab. Dissection continued towards lateral superior ramus pubis. Using fluoroscopy an osteotomy of lateral superior ramus, just medial to tear drop, was performed with curved fish mouth osteotome. Phase 3: Osteotomy lines of the ilium were marked with diathermy as pre planned according to XR/CT and expected correction of acatabulum. 2 Shanz screws were drilled into central acetabular fragment, corresponding with planned correction angles, in order to mobilize central acetabular fragment after osteotomy is complete. ~Iliac osteotomy was performed with reciprocating saw and the main acetabular fragment was moved to realign weight bearing position. After confirmation of correction using fluoroscopy in AP and false profile planes, the fragment was fixed with 2 - 5.5mm ~full threaded~screws~and 2 - 4mm~~full threaded~screws. Inguinal ligament and Sartorious were attached back to ASIS through drill holes. Incision was closed according to soft tissue layers. Skin was closed with subdermal Monocryl. Final fluoro shots were obtained to confirm position/correction. After surgery Jordana~moved both lower limbs and had no NV motor compromise. Specimen - none Bleeding - 950ml Complication - none Evaluation under anesthesia: IR at 90 degrees hip flexion prior to CONCEPCIÓN was 40~degrees and after CONCEPCIÓN was 20~ degrees. Bleedin~cc into cell-saver, 540~of blood products were returned to patient. Post op instructions: 1. Non~weight bearing crutches for 2~weeks 2. Epidural analgesia for 24-48 hours 3. Continuous SCD 4. Aspirin 81 mg X1 day once Epidural is discontinued 5. Avoid hip flexion past 90 and hip External rotation. 6. PT according to my recommendations at follow up visit Kind regards, Dr. Yoni Hurd
[2017-09-10] MEDS: POLYETHYLENE GLYCOL 3350 17 GM PKT PO PRN (22:34)
[2017-09-10] MEDS: SENNOSIDES/DOCUSATE SODIUM TAB PO SCH (22:34)
[2017-09-11] MEDS: diphenhydrAMINE 25 MG CAP PO PRN (00:22)
[2017-09-11] MEDS: DIAZEPAM 2 MG TAB PO PRN ×3 (00:22→21:37)
[2017-09-11] MEDS: NS 1,000 ML IV SCH ×2 (00:30→09:34)
[2017-09-11] MEDS: LEVOTHYROXINE 100 MCG TAB PO SCH (05:14)
[2017-09-11] MEDS: HYDROmorphONE/DILAUDID 6 MG/30 ML PCA IV PRN ×2 (05:27→21:22)
[2017-09-11] MEDS ORDERED: PROMETHAZINE HCL 25 MG/ML INJ IVP PRN (07:27)
[2017-09-11] MEDS: HYDROmorphONE/DILAUDID 4 MG TAB PO SCH ×4 (09:34→21:17)
[2017-09-11] MEDS: SENNOSIDES/DOCUSATE SODIUM TAB PO SCH ×2 (09:35→21:37)
[2017-09-11] MEDS: POLYETHYLENE GLYCOL 3350 17 GM PKT PO PRN ×2 (09:35→21:37)
[2017-09-11] MEDS: HYDROmorphONE/DILAUDID 2 MG TAB PO PRN (16:00)
--- NOTE | 2017-09-11 16:32 | ASMTCMCOM ---
CM Note CM Note Notes: Pt s/p CONCEPCIÓN, resides with . PT/OT rec home. Anticipate pt will d/c when medically stable. No CM d/c needs identified. CM available for changes/needs. Date Signed: 09/11/2017 04:32 PM Electronically Signed By:HAFSA Bermudez
[2017-09-11] MEDS: ONDANSETRON 4 MG/2 ML VIAL IVP PRN (18:27)
--- NOTE | 2017-09-11 19:04 | SOAPPROG ---
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 The SCDs are not working well so she is currently using the hospital's. She has been having "adductor" muscle spasms and is asking for an increase in the Valium. She denies any cp, sob or nausea. She describes having Left Thigh numbness from incision down to knee. Objective: Vital Signs Temp Pulse Resp BP Pulse Ox 37.2 C 83 16 108/57 L 98 09/11/17 17:51 09/11/17 17:51 09/11/17 17:51 09/11/17 17:51 09/11/17 17:51 Laboratory Results 09/11/17 05:13 09/11/17 05:13 09/10/17 09/11/17 09/12/17 05:59 05:59 05:59 Intake Total 8240 1500 Output Total 5475 3000 Balance 2765 -1500 Well appearing in NAD Left Hip: dressings clean dry intact scattered ecchymosis and edema thigh numbness full ROM of foot and ankle H/H within expected range ICD10 Worksheet Patient Problems: Problems Problem Status Onset Seen by pain management service Acute
[2017-09-11] MEDS: NAPROXEN SODIUM 220 MG TAB PO PRN (21:37)
[2017-09-12] MEDS: HYDROmorphONE/DILAUDID 4 MG TAB PO SCH ×6 (01:26→22:45)
[2017-09-12] MEDS: DIAZEPAM 2 MG TAB PO PRN ×2 (01:28→21:09)
[2017-09-12] MEDS: diphenhydrAMINE 25 MG CAP PO PRN (02:08)
[2017-09-12] MEDS: LEVOTHYROXINE 100 MCG TAB PO SCH (05:31)
[2017-09-12] MEDS: SENNOSIDES/DOCUSATE SODIUM TAB PO SCH ×2 (08:40→20:16)
[2017-09-12] MEDS: POLYETHYLENE GLYCOL 3350 17 GM PKT PO PRN (08:41)
[2017-09-12] MEDS: NAPROXEN SODIUM 220 MG TAB PO PRN (10:23)
[2017-09-12] MEDS: ASPIRIN EC 81 MG TAB PO SCH (14:14)
[2017-09-12] MEDS: HYDROmorphONE/DILAUDID 6 MG/30 ML PCA IV PRN (14:46)
[2017-09-12] MEDS: ONDANSETRON 4 MG/2 ML VIAL IVP PRN (14:58)
[2017-09-12] MEDS: HYDROmorphONE/DILAUDID 2 MG TAB PO PRN (20:14)
--- NOTE | 2017-09-12 20:20 | SOAPPROG ---
TRISTAN Progress Note Assessment/Plan: Assessment: Plan: 09/12/17 20:19 Saw Jordana this morning, she is doing very well, pain well managed, better with spinal compared to last time with epidural. NV intact. Will do XR tomorrow and plan on discharge Sunday Dr Hurd Objective: Vital Signs Temp Pulse Resp BP Pulse Ox 37.2 C 85 16 104/62 98 09/12/17 20:00 09/12/17 20:00 09/12/17 20:00 09/12/17 20:00 09/12/17 20:00 Laboratory Results 09/11/17 05:13 09/11/17 05:13 09/11/17 09/12/17 09/13/17 05:59 05:59 05:59 Intake Total 8240 2400 2049 Output Total 9983 2632 4 Balance 2765 -2150 -25 ICD10 Worksheet Patient Problems: Problems Problem Status Onset Seen by pain management service Acute
[2017-09-13] MEDS: HYDROmorphONE/DILAUDID 2 MG TAB PO PRN (00:31)
[2017-09-13] MEDS: DIAZEPAM 2 MG TAB PO PRN (00:31)
[2017-09-13] MEDS: HYDROmorphONE/DILAUDID 4 MG TAB PO SCH ×6 (02:20→23:27)
[2017-09-13] MEDS: LEVOTHYROXINE 100 MCG TAB PO SCH (05:37)
[2017-09-13] MEDS: ONDANSETRON DISINTEGRATING 4 MG TAB PO PRN ×2 (09:13→19:07)
[2017-09-13] MEDS: POLYETHYLENE GLYCOL 3350 17 GM PKT PO PRN (09:14)
[2017-09-13] MEDS: SENNOSIDES/DOCUSATE SODIUM TAB PO SCH ×2 (10:08→21:31)
[2017-09-13] MEDS: ASPIRIN EC 81 MG TAB PO SCH (10:09)
--- NOTE | 2017-09-13 12:16 | SOAPPROG ---
SOAP Progress Note Assessment/Plan: Assessment: 3rd day post op Left Periacetabular Osteotomy Plan: DC BREAKER HAND Dilaudid 2-4mg Scheduled Q4hrs Naproxen TID Scheduled (due to 220mg dose) UP with PT/OT Pelvic Xray today Likely home tomorrow 09/11/17 19:00 09/13/17 12:13 Subjective: Jordana has been a bit sleep deprived for the last few nights. Her pain is well managed, no current nausea, cp or sob. She'll likely go home tomorrow. Objective: Vital Signs Temp Pulse Resp BP Pulse Ox 37.0 C 74 15 107/57 L 92 09/13/17 11:31 09/13/17 11:31 09/13/17 11:31 09/13/17 11:31 09/13/17 11:31 Laboratory Results 09/11/17 05:13 09/11/17 05:13 09/12/17 09/13/17 09/14/17 05:59 05:59 05:59 Intake Total 2400 3800 Output Total 4550 3775 300 Balance -2150 25 -300 Well appearing in NAD Left hip: dressings clean dry intact scattered ecchymosis and edema some thigh numbness full ROM of foot and ankle NVI distally - Pending Discharge Pending Discharge Within 24 Hours: Yes Pending Discharge Date: 09/14/17 Pending Discharge Time: 11:00 ICD10 Worksheet Patient Problems: Problems Problem Status Onset Seen by pain management service Acute
[2017-09-13] MEDS: NAPROXEN SODIUM 220 MG TAB PO SCH ×2 (16:06→21:31)
[2017-09-14] MEDS: HYDROmorphONE/DILAUDID 4 MG TAB PO SCH ×3 (01:11→10:23)
[2017-09-14] MEDS: LEVOTHYROXINE 100 MCG TAB PO SCH (06:19)
[2017-09-14 08:38] VITALS: BP 104/62
[2017-09-14] MEDS: ASPIRIN EC 81 MG TAB PO SCH (09:21)
[2017-09-14] MEDS: NAPROXEN SODIUM 220 MG TAB PO SCH (09:22)
[2017-09-14] MEDS: SENNOSIDES/DOCUSATE SODIUM TAB PO SCH (09:22)
== END 2017-09-14 10:49 | disposition home or self-care (01) | DRG 482 ==
LOC: F3N 05:42
PROVIDERS: ADMIT Orthopaedic Surgery Sports Medicine; ATTEND Orthopaedic Surgery Sports Medicine
PROC: 0SSB04Z Reposition Left Hip Joint with Internal Fixation Device, Open Approach (ICD-10-PCS; principal; 2017-09-10 07:15)
PROC: 0Q830ZZ Division of Left Pelvic Bone, Open Approach (ICD-10-PCS; principal; 2017-09-10 07:15)
DX: Q65.89 Other specified congenital deformities of hip (principal); E03.9 Hypothyroidism, unspecified; K90.0 Celiac disease
CPT/HCPCS: 97116-GP; 97161-GP; 97166-GO; 97530-GP; 97535-GO; C1713; G8987-GO-CM; G8988-GO-CI; J1100; J1170; J2001; J2250; J2274; J2370; J2405; J2550; J2704; J3010; J7060

== ENCOUNTER 2018-05-10 05:47 | Day surgery (SDC) | payer BC ==
--- NOTE | 2018-05-09 21:36 | PDGENHP ---
History and Physical - Chief Complaint Bilateral Hip Pain - History of Present Illness 1. Bilateral~Hip Dyplasia 2. History of Bilateral CONCEPCIÓN HISTORY OF PRESENT ILLNESS: Kimiis a 26 y.o.~very~~active female~who I have had the pleasure to consult on today. 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 ~Jordana Reevesenjoys training for an olympic triathlon, sprint triathlon, high intensity interval traning,hiking, skiing, rock climbing. Jordana's~Bilateral~hip pain~started several months ago, approximately 6 months ago. She reports a sprained ankle in March 2016 but~little~recalled trauma or injury to the right hip in May 2016, and with~no~previous complaints. Kimihas~a known history of hip dysplasia when she was given results after an MRI ordered by Dr. Doss in [place].~ Presentation today is of~posterior~bilateral~hip pain~with lateral hip pain as well. ~The hip~does not~wake her~at night and does~click and catch on her. Sitting~can be a real struggle~for her.~Kimidoes~report suffering from lower back pain episodes. Kimihas~participated in physical therapy twice over two different sessions for 2-3 months each.~~has~tried other conservative measures including chiropractic treatments and~accupuncture, dry needling, massage and graston.~She ~has not~received sufficient symptomatic improvement. Kimihas~utilized medication for pain management, including CBD oils.~She has an intolerance to NSAIDs causing severe nausea Kimihas stiffness but is without pain on the left hip.~ Kimiunderstands that she~has a hip and pelvis problem which should be researched and wishes to get a better understanding of her~hip status, followed by an establishment of a treatment strategy, hoping she~would be able to get back to her~well being active life. History: Past medical history:~~ ciliac, hypothyroid Relevant familial history:~None which is relevant~ Past surgical history:~ None Kimihas never received general anesthesia. I have reviewed, verified and agree with the past medical, surgical, family and social history. Current Medications:~has a current medication list which includes the following prescription(s): levothyroxine and multivitamin. ALLERGIES:~is allergic to penicillins. Objective: Physical Examination: Kimiis 5~feet 8~inches tall and weighs 160~Lbs. Kimiis AAO x3; she~is well-nourished, in NAD. Skin is warm and dry. ~Breathing is non-labored. ~CV with RRR by pulse. Abdomen is soft, NTND. Currently,~she~walks with a normal~gait. Trendelenburg sign is~negative~and proprioception is reduced,~both~sides. She~presents with no~signs of joint laxity. Beightons Score:~0 She~is fit looking. ~~ Lower spine examination is~negative~for sciatic or femoral nerve irritation with negative~SLR &~femoral stretch tests. Range of motion of the spine is normal~for flexion, extension, and rotations, with no~associated pain. TTP to the Lumbar paraspinal muscles bilateral. Strength, Sensation and pulses are~normal -~bilaterally Ankles and knees exams are~normal~and no~mal-alignment is evident. She~has no leg length discrepancy. Thigh circumference is~symmetric~with no evidence for muscle atrophy~on both~ sides. Hip ROM (degrees): FL ER At 90~hip FL IR At 90~hip FL AB AD EX IR Neutral hip ER Neutral hip R 105 40 45 40 5 10 50 25 L 110 40 40 35-40 5 10 50 25 Specific hip and pelvis tests: Quadrant ALEX Roll Add. Longus R +++ +++ Negative Negative L + + Negative Negative Glut. Med ITB Pos. Imp R +++ 5/5 strength Negative 5/5 strength Negative L Negative 5/5 strength Negative 5/5 strength Negative Squeeze test measured~weak Bony Symphysis pubis is~painful~to touch while concentric activity of the rectus abdominis, does~produce pain at its insertion on the right side. Ilio Psos specific tests are~positive for pain during cycling for~the right hip~ and remarkable for painful snap~on the right HF has~negative~both hips. Anterior/posterior~capsule tenderness right >> left Greater trochanteric burse is~painful~on the right hip~>> left Piriformis tests: FAIR is~negative,~with no~local signs of neuritis related to sciatic nerve. SIJs examination is~produces pain on~right side~with~abnormal~ALEX~in relation and local tenderness. Hamstrings tests are~positive for~tendinopathy the right hip~(muscle belly) On a daily basis, the following percentages reflectJani's overall total pain : Deep hip:~75%~(posterior~capsule) GT:~25% Imaging: Radiology studies which I have personally reviewed, analyzed and measured are below: XR: AP of the hip and pelvis: Performed in a~good~technique Coccyx~is at the level of the pubic symphysis 0 degrees [place] Lines are~interrupted~R>L Minimal~Pathological signs are seen in the Symphysis Pubis. Minimal~Pathological signs are seen at the Ischial tuberosity. ~ Specific measurements show: NSA~ LCE Sourcil~Angle Sharp's angle Lat. Cam Lat. Pincer C.Over~sign Head~Coverage % ATDmm R N 13 18 44 - - 12-2 60 N L N 9 25 47 - - 12-12:30 60 N Pos. wall sign ISS NAD ~~Dysplasia Comments R ++ Negative 10.3~mm +++ L ++ Negative 11.6~mm +++ Sclerosis Sup. Lat. OA Cysts Joint Space-WBZ Joint Space-Medial R Negative Negative Negative 7.4~mm 5.9~mm L Negative Negative Negative 7.4~mm 7.2~mm X Table lateral: Anterior cam lesion is~seen~on both hips. Alpha Angle: ~ Right~59~dergrees Left~58~degrees MRI shows:~decreased cartilage coverage of Right hip, no bone edema, labral tear ~~~~~~~~~~ Impression and plan:Leandro Boldenis a 28 y.o.~active female~suffering from symptomatic Bilateral~hip pain due to Hip Dyplasia~causing significant disability to her~and altering her~ sport and life activities. Physical examination, imaging, and~her~story correspond with the diagnosis mentioned above. I explained that hip dysplasia is a condition wherein the hip joint has excessive play~and instability due to a variety of factors, including the depth and adequacy of the socket, the orientation of the femur bone, and ligament laxity around the hip joint. Dysplasia ranges in severity from borderline to seth, with treatment options being specific to the specific nature of the problem. Left untreated, the instability in the hip joint can cause progressive tearing of the labrum and deterioration of the surface cartilage, ultimately resulting in progressive osteoarthritis of the hip. I explained that femoroacetabular impingement (QUINTIN - Cam type) arises due to a bony or soft tissue conflict between the femur (ball) and acetabulum (socket) caused by an abnormality in the shape of the femoral head and neck. Over time, repetitive impingement can result in damage to the labrum and adjacent surface cartilage within the socket, ultimately giving rise to progressive osteoarthritis of the hip. I explained that although a labral tear can be a source of pain, it is rarely the root of the problem and typically occurs secondary to an underlying abnormality in the shape and mechanics of the hip joint. I reviewed conservative treatment options for Dysplasia and QUINTIN including activity modification to avoid positions of impingement or instability, physical therapy, non-steroidal anti-inflammatory medications, and various injections (corticosteroid and PRP) aimed at reducing inflammation in the hip joint or/and preventing dynamic instability and impingement. PRP injections may promote healing and reduce symptoms in certain cases but it will not repair chronically damaged tissue. Although these measures may help to buy time~and reduce current level of symptoms, they are not a definitive solution to the problem given the underlying abnormality in the shape of the hip joint. Patients who have failed conservative management and continue to experience symptoms are candidates for definitive surgical treatment, which may consist of hip arthroscopy alone or in combination with more invasive bony realignment procedures of the hip socket and/or femur called periacetabular osteotomy (CONCEPCIÓN). Hip arthroscopy typically includes treating the labrum with either repair or reconstruction of the torn labrum; as well as addressing the underlying abnormalities by restoring the normal shape to the hip joint. If the cartilage is damaged a Microfracture surgical procedure may also be necessary to help stimulate the growth of fibrocartilage. If a patient requires a labral reconstruction or a Microfracture, the initial rehabilitation from the surgery may take longer, but the card player results are typically favorable. I reviewed the technical aspects of periacetabular osteotomy (CONCEPCIÓN) including risks, benefits, and expected course of recovery.~Kimiunderstands that CONCEPCIÓN is an inpatient procedure carried out through two medium sized incisions on the front and back of the hip joint. The hip socket is cut, realigned, and stabilized with 2 3 internal screws. Risks include infection, bleeding, injury to nearby nerves or vessels, stiffness, persistent pain, instability, failure of bony healing, implant related complications, and venous thromboembolic disease. Rarely, revision surgery may be required to address these problems. Risks, potential complications, side effects and recovery from surgical procedure were discussed in length. We explained how this surgery is an open procedure, and though patients tend to do well in the long-term, it involves significant pain in the first 2-4 weeks post-op and a rather lengthy rehab.~Overall recovery takes approximately 6 12~months depending on the extent of damage and degree of repair. Kimiunderstands that she~will undergo hip arthroscopy 1 week prior to the CONCEPCIÓN to address damage inside the hip joint. Kimiunderstands that hip arthroscopy and CONCEPCIÓN are two separate procedures that are best performed one week apart, with the arthroscopy commencing first to "tighten up" any pathology evident in the hip joint (labral repair, etc.) and the CONCEPCIÓN open procedure occurring 7-10 days later to realign the acetabulum. Kimiwill review the info presented. In order to obtain more detailed information regarding the alignment, orientation, and shape of the bony hip and pelvis I will order a CT scan to be performed. The results of the CT scan, including femoral torsion and acetabular version measured values and 3D images, will aid me in deciding on the best treatment strategy and surgical pre-planning. Kimiwill contact us if she~wishes to pursue further treatment in the future. Kimiis happy with this plan. I have also supplied~her~with handouts, outlining the expected surgical treatment and rehab involved. I wish~JordanaLeandroall the best, ~~ Celine Campbell, KARYNA History Information - Allergies/Home Medication List Allergies/Adverse Reactions: adhesive tape Allergy (Verified 05/03/18 13:00) Rash amoxicillin Allergy (Verified 05/03/18 13:00) Swelling/neck,face,throat gluten Allergy (Verified 05/03/18 13:00) latex Allergy (Verified 05/03/18 13:00) Redness Milk Containing Products [dairy] Allergy (Verified 05/03/18 13:00) oxycodone Allergy (Verified 05/03/18 13:00) VERTIGO Penicillins Allergy (Verified 05/03/18 13:00) Swelling/neck,face,throat soy Allergy (Verified 05/03/18 13:00) Home Medications: Herbals/Supplements -Info Only 01/08/17 [Last Taken 05/03/18] Levothyroxine [Synthroid 100 mcg (*)] DAILY06 01/08/17 [Last Taken 09/10/17] Fexofenadine HCl 05/03/18 [Last Taken Unknown] I have personally reviewed and updated: medical history - Social History Smoking Status: Never smoked Review of Systems Review of Systems: Physical Exam Physical Exam:
[2018-05-10] MEDS ORDERED: LIDOCAINE 1% 2 ML INJ ONE (06:00)
[2018-05-10] MEDS ORDERED: CLINDAMYCIN 900 MG/DEXTROSE 50 ML IV ONE (06:05)
[2018-05-10] MEDS ORDERED: PREGABALIN 150 MG CAP PO ONE (06:05)
[2018-05-10] MEDS ORDERED: ACETAMINOPHEN 500 MG TAB PO ONE (06:05)
[2018-05-10] MEDS ORDERED: LIDOCAINE 1% 2 ML INJ ID PRN (06:06)
[2018-05-10] MEDS ORDERED: LR 1,000 ML IV ONE (06:06)
[2018-05-10] MEDS ORDERED: LIDOCAINE 1% 300 MG/30 ML SDV ONE (06:47)
[2018-05-10] MEDS ORDERED: ceFAZolin 2 GM/DEXTROSE 100 ML IV ONE (06:55)
[2018-05-10] MEDS ORDERED: MIDAZOLAM 2 MG/2 ML VIAL IVP ONE (07:12)
[2018-05-10] MEDS ORDERED: MIDAZOLAM 2 MG/2 ML VIAL ONE (07:13)
[2018-05-10] MEDS ORDERED: SCOPOLAMINE HYDROBROMIDE 1 MG/3 DAYS PATCH TD ONE (07:13)
--- NOTE | 2018-05-10 07:14 | PDANEPAE ---
ANE History of Present Illness BL hip hardware removal ANE Past Medical History - Cardiovascular History Hx Hypertension: No Hx Arrhythmias: No Hx Chest Pain: No Hx Coronary Artery / Peripheral Vascular Disease: No Hx CHF / Valvular Disease: No Hx Palpitations: No - Pulmonary History Hx COPD: No Hx Asthma/Reactive Airway Disease: No Hx Recent Upper Respiratory Infection: No Hx Oxygen in Use at Home: No Hx Sleep Apnea: Yes Sleep Apnea Screening Result - Last Documented: Negative - Neurologic History Hx Cerebrovascular Accident: No Hx Seizures: No Hx Dementia: No - Endocrine History Hx Diabetes: No Hypothyroid: Yes Obesity: no Endocrine History Comment: hypothyroidism - Renal History Hx Renal Disorders: No - Liver History Hx Hepatic Disorders: No - Neurological & Psychiatric Hx Hx Neurological and Psychiatric Disorders: No - Cancer History Hx Cancer: No - Congenital Disorder History Hx Congenital Disorders: Yes Congenital History Comment: bilateral hip dysplasia - GI History Hx Gastrointestinal Disorders: Yes Gastrointestinal History Comment: celiac disease. hx of colonoscopies - Other Health History Other Health History: tmj uses mouthguard at [facility]. wears glasses. recent diagnosis of Mast Cell Activation Syndrome - Chronic Pain History Chronic Pain: Yes (hips) - Surgical History Prior Surgeries: 09/10/17 left CONCEPCIÓN with Romana-Gianluca. 09/03/17 left hip scope, femoroplasty and labral repair with Romana-Gianluca. 02/09/17 right CONCEPCIÓN with Romana-Gianluca. 01/29/17 right hip femoroplasty, labral repair with Romana Gianluca ANE Review of Systems Review of systems is: negative Review of Systems: - Exercise capacity METS (RN): 4 METS ANE Patient History - Allergies Allergies/Adverse Reactions: adhesive tape Allergy (Verified 05/03/18 13:00) Rash amoxicillin Allergy (Verified 05/03/18 13:00) Swelling/neck,face,throat gluten Allergy (Verified 05/03/18 13:00) latex Allergy (Verified 05/03/18 13:00) Redness Milk Containing Products [dairy] Allergy (Verified 05/03/18 13:00) oxycodone Allergy (Verified 05/03/18 13:00) VERTIGO Penicillins Allergy (Verified 05/03/18 13:00) Swelling/neck,face,throat soy Allergy (Verified 05/03/18 13:00) - Home Medications Home Medications: Herbals/Supplements -Info Only 01/08/17 [Last Taken 05/03/18] Levothyroxine [Synthroid 100 mcg (*)] DAILY06 01/08/17 [Last Taken 05/10/18] Fexofenadine HCl 05/03/18 [Last Taken 05/10/18] DEXAMETHASONE 05/10/18 [Last Taken 05/10/18 8mg] Pepcid 05/10/18 [Last Taken 05/10/18] - NPO status NPO Status: no food or drink >8 hours NPO Since - Liquids (Date): 05/09/18 NPO Since - Liquids (Time): 21:30 NPO Since - Solids (Date): 05/09/18 NPO Since - Solids (Time): 20:00 - Smoking Hx Smoking Status: Never smoked - Alcohol Use Alcohol Use: Rarely - Family Anes Hx Family Anes Hx: none Family Hx Anesthesia Complications: none ANE Labs/Vital Signs - Vital Signs Blood Pressure: 114/78 Heart Rate: 104 Respiratory Rate: 20 O2 Sat (%): 96 Height: 172.72 cm Weight: 77.111 kg ANE Physical Exam - Airway Neck exam: FROM Mallampati Score: Class 1 - Pulmonary Pulmonary: no respiratory distress, no rales or rhonchi - Cardiovascular Cardiovascular: regular rate and rhythym, tachycardia ANE Anesthesia Plan Anesthesia Plan: GA w LMA
[2018-05-10] MEDS ORDERED: SCOPOLAMINE HYDROBROMIDE 1 MG/3 DAYS PATCH TD SCH (07:15)
[2018-05-10] MEDS ORDERED: PROPOFOL/EMULSION 500 MG/50 ML BOTTLE IV ONE (07:20)
[2018-05-10] MEDS ORDERED: fentaNYL 250 MCG/5 ML INJ ONE (07:20)
[2018-05-10] MEDS ORDERED: PROPOFOL 200 MG/20 ML VIAL ONE (07:36)
[2018-05-10] MEDS ORDERED: HYDROCODONE/APAP 5/325 TAB PO PRN (08:07)
[2018-05-10] MEDS ORDERED: NALOXONE HCL 0.4 MG/ML INJ IVP PRN (08:07)
[2018-05-10] MEDS ORDERED: PROMETHAZINE HCL 25 MG/ML INJ IVP PRN (08:07)
[2018-05-10] MEDS ORDERED: LR 500 ML IV PRN (08:07)
[2018-05-10] MEDS ORDERED: oxyCODONE IR 5 MG TAB PO PRN (08:07)
[2018-05-10] MEDS ORDERED: HYDROmorphONE/DILAUDID 2 MG/ML INJ IVP PRN (08:07)
[2018-05-10] MEDS ORDERED: ONDANSETRON 4 MG/2 ML VIAL IVP PRN (08:07)
[2018-05-10] MEDS ORDERED: fentaNYL 100 MCG/2 ML INJ IVP PRN (08:07)
[2018-05-10] MEDS ORDERED: ONDANSETRON 4 MG/2 ML VIAL ONE (08:17)
[2018-05-10] MEDS ORDERED: GLYCOPYRROLATE 0.2 MG/1 ML VIAL ONE (08:17)
--- NOTE | 2018-05-10 08:29 | POSTOPPROG ---
Post Op Note Date of Operation: 05/10/18 Surgeon: Yoni Hurd Process Coordinator: Dr. Kirby Anesthesia: GET(General Endotracheal) Pre-op Diagnosis: Bilateral hip retained hardware Post-op Diagnosis: Same Procedure: Bilateral hip screw removal Inf/Abcess present in the surg proc area at time of surgery?: No
[2018-05-10 09:21] VITALS: BP 108/55
[2018-05-13] MEDS ORDERED: PATCH REMOVAL 1 EA PATCH TD SCH (07:12)
== END 2018-05-10 10:35 | disposition home or self-care (01) ==
LOC: FSGY 05:47
PROVIDERS: ATTEND Orthopaedic Surgery Sports Medicine
DX: T84.84XA Pain due to internal orthopedic prosthetic devices, implants and grafts, initial encounter (principal); M25.551 Pain in right hip; M25.552 Pain in left hip; E03.9 Hypothyroidism, unspecified; D89.40 Mast cell activation, unspecified
CPT/HCPCS: J0690; J2250; J2405; J2704; J3010

== ENCOUNTER 2018-10-25 05:50 | Day surgery (SDC) | payer BC ==
--- NOTE | 2018-10-24 16:55 | GHP ---
[f rep st] PREOP HISTORY AND PHYSICAL PLANNED PROCEDURE: Laparoscopic bilateral salpingectomy. INDICATIONS: Sterilization/family planning. HISTORY OF PRESENT ILLNESS: The patient is a 28-year-old 0, who has been certain she does not want to have children and has tried and failed multiple other family planning options and is requesting definitive sterilization with bilateral salpingectomy. The patient had a Mirena, which resulted in constant spotting. She then had a ParaGard placed, which was incidentally found to be in the lower uterine segment when she had an ultrasound to follow up an ovarian cyst. She had the ParaGard removed and replaced. Ultrasound confirmed placement. Six weeks later, IUD check was done and the IUD was in the lower uterine segment. The patient kept the IUD and used withdrawal for a year. Then, her primary care doctor finally removed her IUD at her annual and started her control pills. The patient has been having irregular bleeding since being on the control pills and because patient is certain she does not want to have children, she is requesting a bilateral salpingectomy. Risks, benefits and all other options have been extensively reviewed with the patient and the patient has been properly consented. MEDICAL HISTORY: Significant for hypothyroidism, history of fibromyalgia, history of irritable bowel syndrome, congenital hip dysplasia, celiac. MEDICATIONS: control pills, levothyroxine. SURGICAL HISTORY: Tear duct repair, bilateral hip arthroscopy, periacetabular osteotomy, screw removal following osteotomy. ALLERGIES: Penicillin, amoxicillin, adhesive SOCIAL HISTORY: The patient is . She also has 1 additional partner. She denies tobacco or drug use. She does drink alcohol socially. FAMILY MEDICAL HISTORY: Noncontributory. 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 Periods every 30 days, lasting 7 days. She is a 0. Patient denies any history of any abnormal Pap smears or sexually transmitted diseases. Most recent annual exam was done within the last year. PHYSICAL EXAMINATION: VITAL SIGNS: Stable. Her weight is 164. Her blood pressure is 100/68. GENERAL APPEARANCE: Alert and oriented x3. PSYCH: Appropriate affect. MUSCULOSKELETAL: Grossly intact. NEURO: Grossly intact. HEART: Regular. LUNGS: Clear to auscultation bilaterally. ABDOMEN: Soft, nondistended and nontender. No organomegaly is noted. EXTREMITIES: No calf tenderness or edema. PELVIC: Exam reveals mobile midposition uterus with no adnexal masses. REVIEW OF SYSTEMS: A 10-point review of systems is negative. ASSESSMENT AND PLAN: A 28-year-old, 0, who desires permanent sterilization, as she is not planning on having any children. She will undergo a laparoscopic bilateral salpingectomy. Risks and benefits were extensively reviewed with the patient and the patient was properly consented. /[id number]/MODL MTDD
[2018-10-25] MEDS ORDERED: LR 1,000 ML IV ONE (06:04)
[2018-10-25] MEDS ORDERED: SILVER NITRATE APPLICATOR 1 APPL TP ONE (06:54)
[2018-10-25] MEDS ORDERED: BUPIVACAINE 0.25% 30 ML SDV ONE (06:54)
[2018-10-25] MEDS ORDERED: MIDAZOLAM 2 MG/2 ML VIAL ONE (07:15)
[2018-10-25] MEDS ORDERED: MIDAZOLAM 2 MG/2 ML VIAL IVP ONE (07:19)
--- NOTE | 2018-10-25 07:19 | PDANEPAE ---
ANE History of Present Illness Desired sterilization, here for bilateral salpingectomy ANE Past Medical History - Cardiovascular History Hx Hypertension: No Hx Arrhythmias: No Hx Chest Pain: No Hx Coronary Artery / Peripheral Vascular Disease: No Hx CHF / Valvular Disease: No Hx Palpitations: No - Pulmonary History Hx COPD: No Hx Asthma/Reactive Airway Disease: No Hx Recent Upper Respiratory Infection: No Hx Oxygen in Use at Home: No Hx Sleep Apnea: No Sleep Apnea Screening Result - Last Documented: Negative - Neurologic History Hx Cerebrovascular Accident: No Hx Seizures: No Hx Dementia: No - Endocrine History Hx Diabetes: No Endocrine History Comment: hypothyroidism - Renal History Hx Renal Disorders: No - Liver History Hx Hepatic Disorders: No - Neurological & Psychiatric Hx Hx Neurological and Psychiatric Disorders: No Neurological / Psychiatric History Comment: rafael. anxiety - Cancer History Hx Cancer: No - Congenital Disorder History Hx Congenital Disorders: Yes Congenital History Comment: bilateral hip dysplasia - GI History Hx Gastrointestinal Disorders: Yes Gastrointestinal History Comment: celiac disease. hx of colonoscopies - Other Health History Other Health History: recent diagnosis of Mast Cell Activation Syndrome 04/21 - Chronic Pain History Chronic Pain: No - Surgical History Prior Surgeries: 09/10/17 left CONCEPCIÓN with Romana-Gianluca. 09/03/17 left hip scope, femoroplasty and labral repair with Romana-Gianluca. 02/09/17 right CONCEPCIÓN with Romana-Gianluca. 01/29/17 right hip femoroplasty, labral repair with Romana Gianluca. dcr 01/19 ANE Review of Systems Review of Systems: - Exercise capacity METS (RN): 4 METS ANE Patient History - Allergies Allergies/Adverse Reactions: adhesive tape Allergy (Verified 10/17/18 10:24) Rash amoxicillin Allergy (Verified 10/17/18 10:24) Swelling/neck,face,throat gluten Allergy (Verified 10/17/18 10:24) latex Allergy (Verified 10/17/18 10:24) Redness Milk Containing Products [dairy] Allergy (Verified 10/17/18 10:24) oxycodone Allergy (Verified 10/17/18 10:24) VERTIGO Penicillins Allergy (Verified 10/17/18 10:24) Swelling/neck,face,throat soy Allergy (Verified 10/17/18 10:24) Other-Enter Comments - Home Medications Home Medications: Herbals/Supplements -Info Only 01/08/17 [Last Taken 1 Week Ago ~10/18/18] Levothyroxine [Synthroid 100 mcg (*)] DAILY06 01/08/17 [Last Taken 10/25/18 04: 30] Control 10/17/18 [Last Taken 10/24/18] Claritin 10/17/18 [Last Taken 10/25/18 04:30] Decadron 8 mg PO 10/25/18 [Last Taken 10/25/18 04:30] - NPO status NPO Since - Liquids (Date): 10/25/18 NPO Since - Liquids (Time): 04:30 NPO Since - Solids (Date): 10/24/18 NPO Since - Solids (Time): 22:00 - Smoking Hx Smoking Status: Never smoked - Family Anes Hx Family Hx Anesthesia Complications: none ANE Labs/Vital Signs - Vital Signs Blood Pressure: 121/71 Heart Rate: 85 Respiratory Rate: 18 O2 Sat (%): 98 Height: 172.72 cm Weight: 72.575 kg ANE Physical Exam - Airway Neck exam: FROM Mallampati Score: Class 1 Mouth exam: normal dental/mouth exam - Pulmonary Pulmonary: no respiratory distress, no rales or rhonchi - Cardiovascular Cardiovascular: regular rate and rhythym, no murmur, rub, or gallop - ASA Status ASA Status: II ANE Anesthesia Plan Anesthesia Plan: general endotracheal anesthesia Total IV Anesthesia: No
--- NOTE | 2018-10-25 07:21 | PDHPUP ---
History & Physical Update H&P update statement: This history and physical update is based on an assessment of the patient which was completed after admission or registration (within 24 hours), but prior to the surgery/procedure. H&P update: H&P reviewed & patient examined, changes noted (patient took 8 mg decadron this am per recommondations of her pcp for mast cell desabilization. anesthesia aware. consent resigned as it had been more than 30 days )
[2018-10-25] MEDS ORDERED: LIDOCAINE 2% 100 MG/5 ML SYR ONE (07:25)
[2018-10-25] MEDS ORDERED: PROPOFOL 200 MG/20 ML VIAL ONE (07:25)
[2018-10-25] MEDS ORDERED: fentaNYL 100 MCG/2 ML INJ ONE (07:25)
[2018-10-25] MEDS ORDERED: DEXAMETHASONE 4 MG/ML VIAL ONE (07:25)
[2018-10-25] MEDS ORDERED: HYDROmorphONE/DILAUDID 2 MG/ML INJ ONE (08:09)
[2018-10-25] MEDS ORDERED: LR 500 ML IV PRN (08:12)
[2018-10-25] MEDS ORDERED: METOCLOPRAMIDE 10 MG/2 ML VIAL IVP PRN (08:12)
[2018-10-25] MEDS ORDERED: PHENYLEPHRINE HCL 100 MCG/ML SYR IVP PRN (08:12)
[2018-10-25] MEDS ORDERED: PROMETHAZINE HCL 25 MG/ML INJ IVP PRN (08:12)
[2018-10-25] MEDS ORDERED: DIAZEPAM 10 MG/2 ML SYR IVP PRN (08:12)
[2018-10-25] MEDS ORDERED: HYDROmorphONE/DILAUDID 1 MG/ML INJ IVP PRN (08:12)
[2018-10-25] MEDS ORDERED: HYDROCODONE/APAP 5/325 TAB PO PRN (08:12)
[2018-10-25] MEDS ORDERED: NALOXONE HCL 0.4 MG/ML INJ IVP PRN (08:12)
[2018-10-25] MEDS ORDERED: fentaNYL 100 MCG/2 ML INJ IVP PRN (08:12)
[2018-10-25] MEDS ORDERED: MEPERIDINE 25 MG/0.5 ML AMP IVP PRN (08:12)
[2018-10-25] MEDS ORDERED: DIAZEPAM 10 MG/2 ML SYR ONE (08:21)
--- NOTE | 2018-10-25 08:35 | POSTANESTH ---
Post Anesthetic Evaluation Cardiovascular Status: Normal, Stable Respiratory Status: Normal, Stable Level of Consciousness/Mental Status: Can Participate in Eval, Alert and Oriented Pain Control: Adequate, Prn Tx Ordered Nausea/Vomiting Control: Adequate, Prn Tx Ordered Complications Possibly Related to Anesthesia: None Noted
--- NOTE | 2018-10-25 08:51 | GOP ---
[f rep st] OPERATIVE REPORT DATE OF OPERATION: 10/25/2018 SURGEON: Carolina Cruz DO ENGINEERING AND SCIENTIFIC PROGRAMMER: Dr. Kuo. ANESTHESIA: General endotracheal tube. PREOPERATIVE DIAGNOSIS: Family status complete, desires sterilization. POSTOPERATIVE DIAGNOSIS: Family status complete, desires sterilization. PROCEDURE PERFORMED: Laparoscopic bilateral salpingectomy. FINDINGS: Normal ovaries, uterus, and tubes. Normal upper abdomen and normal appendix. SPECIMENS: Bilateral fallopian tubes. ESTIMATED BLOOD LOSS: 10 cc. INDICATIONS: Patient is a 28-year-old, 0, who has been certain she does not have any childre n. She has tried multiple other control methods but has had issues with all of them, including multiple IUD expulsions, and she is not doing well on control pills. She is requesting defini tive sterilization with a bilateral salpingectomy. Risks and benefits and alternatives have been ext ensively reviewed with the patient and patient has been properly consented. DESCRIPTION OF PROCEDURE: The patient was taken to the operating room with intravenous fluids in audie ce. She was then placed on the operating room table in dorsal supine position where general anesthes ia was obtained. She was then repositioned into the dorsal lithotomy position with the [facility] sti rrups and prepped and draped in normal sterile fashion. Exam under anesthesia revealed a mobile ante verted uterus, with no adnexal masses. A speculum was then placed in the patient's vagina. An Allis clamp was used to grasp the anterior lip of the cervix and an acorn uterine manipulator was then ins erted without difficulty. The speculum was then removed from the patient's vagina. Attention was th en turned to the patient's abdomen where a 5 mm skin incision was then made in the umbilicus. The 5 mm laparoscope was then advanced into the patient's abdomen under direct visualization with an Optivi ew. The abdomen was then insufflated with CO2 gas until an adequate pneumoperitoneum was achieved. The area underneath the trocar insertion site was found to be unremarkable. The patient was then audie charley in Trendelenburg and a 5 mm skin incision was then made in the patient's left lower quadrant. A 5 mm trocar was then advanced into the patient's abdomen under direct visualization. A 3rd 5 mm troc ar was then placed in the patient's right lower quadrant in a similar fashion under direct visualizat ion. The uterus was manipulated. Ovaries, uterus, and tubes were unremarkable. The left fallopian tube was then grasped at the fimbriated end and tented up, and the LigaSure was then used to perform the salpingectomy. The tube was then withdrawn through the trocar. The right fallopian tube was the n removed in a similar fashion. Hemostasis was assured. The upper abdomen was explored and found to be unremarkable. The appendix was identified and found to be unremarkable and mobile. CO2 gas was expressed from the patient's abdomen. Trocars were removed from the patient's abdomen. Skin was derick sed with 4-0 Monocryl in a subcuticular fashion. Instruments were then removed from the patient's va ramon. The Haynes catheter was then removed. The sponge, lap, and needle count were correct x2. The patient was transferred to recovery room in stable condition. /[id number]/MODL
[2018-10-25 10:15] VITALS: BP 100/72
== END 2018-10-25 10:05 | disposition home or self-care (01) ==
LOC: FSGY 05:50
PROVIDERS: ATTEND Obstetrics & Gynecology
PROC: 0UT74ZZ Resection of Bilateral Fallopian Tubes, Percutaneous Endoscopic Approach (ICD-10-PCS; principal; 2018-10-25 07:15)
DX: Z30.2 Encounter for sterilization (principal); D89.40 Mast cell activation, unspecified; Z87.76 Personal history of (corrected) congenital malformations of integument, limbs and musculoskeletal system
CPT/HCPCS: J1100; J1170; J2001; J2250; J2704; J3010; J3360